=== PATIENT | male | born 1940 | race Caucasian/White ===

== ENCOUNTER 2017-07-29 16:18 | Emergency (ER) | payer MEDICARE, MEDICAID ==
[2017-07-29] MEDS ORDERED: Sodium Chloride 0.9% 1,000 ML IV SCH (16:45)
[2017-07-29] MEDS ORDERED: Albuterol/Ipratropium 3.0-0.5 MG/3 ML Neb Soln NEB ONE (16:57)
--- NOTE | 2017-07-29 17:05 | EDM.PDOC ---
ED HPI GENERAL MEDICAL PROBLEM - General Chief Complaint: Fever Stated Complaint: fever Time Seen by Provider: 07/29/17 16:57 Source of Information: Reports: Patient, [place] Records History Limitations: Reports: No Limitations - History of Present Illness INITIAL COMMENTS - FREE TEXT/NARRATIVE: PT SENT FROM [facility] AFTER CONTACTING DR WALKER FOR URI / FEVER / LOW O2 SAT / PRODUCTIVE COUGH . SYMPTOMS BEGAN YESTERDAY. PT DENIES CP, N/V/D Onset: Gradual Onset Date: 07/28/17 Duration: Day(s): Severity: Mild Improves with: Reports: None Worsens with: Reports: None Associated Symptoms: Reports: Cough, cough w sputum, Fever/Chills, Weakness - Related Data Allergies Allergy/AdvReac Type Severity Reaction Status Date / Time Sulfa (Sulfonamide Allergy Rash Verified 07/29/17 17:05 Antibiotics) Home Meds: Home Meds Fluticasone/Salmeterol [Advair 500-50] 1 puff INH BID 11/12/13 [History] Acetaminophen [Tylenol Extra Strength] 500 mg PO BID 07/29/17 [History] Escitalopram [Lexapro] 20 mg PO DAILY 07/29/17 [History] Melatonin 3 mg PO BEDTIME PRN 07/29/17 [History] Tiotropium [Spiriva Handihaler] 18 mcg INH BID 07/29/17 [History] Past Medical History - Past Surgical History Other HEENT Surgeries/Procedures: plastic lenses put in Social & Family History - Tobacco Use Smoking Status *Q: Current Every Day Smoker Years of Tobacco use: 60 Packs/Tins Daily: 0.8 Used Tobacco, but Quit: No Second Hand Smoke Exposure: Yes - Alcohol Use Days Per Week of Alcohol Use: 2 Number of Drinks Per Day: 1 Total Drinks Per Week: 2 - Recreational Drug Use Recreational Drug Use: No ED ROS GENERAL - Review of Systems Review Of Systems: ROS reveals no pertinent complaints other than HPI. Constitutional: Reports: Fever, Weakness HEENT: Reports: No Symptoms Respiratory: Reports: Wheezing, Cough, Sputum Cardiovascular: Reports: No Symptoms Endocrine: Reports: No Symptoms GI/Abdominal: Reports: No Symptoms : Reports: No Symptoms Musculoskeletal: Reports: No Symptoms Skin: Reports: No Symptoms Neurological: Reports: No Symptoms Psychiatric: Reports: No Symptoms Hematologic/Lymphatic: Reports: No Symptoms Immunologic: Reports: No Symptoms ED EXAM, GENERAL - Physical Exam Exam: See Below Exam Limited By: No Limitations General Appearance: Alert, WD/WN, No Apparent Distress Eye Exam: Bilateral Eye: Normal Inspection Nose: Normal Inspection, Normal Mucosa, No Blood Throat/Mouth: Normal Inspection, Normal Oropharynx, No Airway Compromise Head: Atraumatic, Normocephalic Neck: Normal Inspection Respiratory/Chest: No Respiratory Distress, Rhonchi, Wheezing Cardiovascular: Regular Rate, Rhythm, No Murmur GI/Abdominal: Normal Bowel Sounds, Soft, Non-Tender Extremities: Normal Inspection, No Pedal Edema Neurological: Alert, Oriented, Normal Cognition Psychiatric: Normal Affect, Normal Mood Skin Exam: Warm, Dry, Intact, Normal Color, No Rash Lymphatic: No Adenopathy Course - Orders/Labs/Meds Orders: Active Orders 24 hr Category Date Time Status RT Aerosol Therapy [RC] ASDIRECTED Care 07/29/17 16:58 Ordered CXR [Chest 2V] [CR] Stat Exams 07/29/17 16:33 Ordered CBC WITH AUTO DIFF [HEME] Stat Lab 07/29/17 16:33 Ordered CMP [COMPREHENSIVE METABOLIC PN,CMP] [CHEM] Stat Lab 07/29/17 16:33 Ordered CULTURE BLOOD [BC] Stat Lab 07/29/17 16:34 Ordered CULTURE BLOOD [BC] Stat Lab 07/29/17 16:56 Ordered Albuterol/Ipratropium [DuoNeb 3.0-0.5 MG/3 ML] Med 07/29/17 16:57 Once 3 ml NEB ONETIME ONE Sodium Chloride 0.9% [Normal Saline] 1,000 ml Med 07/29/17 16:45 Active IV ASDIRECTED Medication Orders Sodium Chloride (Normal Saline) 1,000 mls @ 125 mls/hr IV ASDIRECTED [facility] Meds: Medications Generic Name Dose Route Start Last Admin Trade Name Freq PRN Reason Stop Dose Admin Sodium Chloride 1,000 mls @ 125 mls/hr 07/29/17 16:45 Normal Saline IV ASDIRECTED [facility] - Radiology Interpretation Free Text/Narrative:: CXR SHOWS RLL PNEUMONIA - Re-Assessments/Exams Free Text/Narrative Re-Assessment/Exam: 07/29/17 17:23 PT AFEBRILE, NONTOXIC APPEARING, VSS, ROCEPHIN AND LEVAQUIN GIVEN. PT REFUSES TO STAY IN HOSPITAL. DISCUSSED WITH DR WALKER AND WILL SEND BACK TO [place] AND CONTINUE WITH LEVAQUIN 07/29/17 17:27 Departure - Departure Time of Disposition: 17:29 Disposition: DC/Tfer to [facility] Condition: Fair Clinical Impression: Pneumonia Qualifiers: Pneumonia type: due to unspecified organism Laterality: right Lung location: lower lobe of lung Qualified Code(s): J18.1 - Lobar pneumonia, unspecified organism - Discharge Information Instructions: Community-Acquired Pneumonia, Adult, [id number] Additional Instructions: TAKE LEVAQUIN DIRECTED. FOLLOW UP AT [facility] IN 3 DAYS. RETURN TO ER SOONER IF SYMPTOMS WORSEN - My Orders Last 24 Hours: My Active Orders 07/29/17 16:33 CXR [Chest 2V] [CR] Stat CBC WITH AUTO DIFF [HEME] Stat CMP [COMPREHENSIVE METABOLIC PN,CMP] [CHEM] Stat 07/29/17 16:34 CULTURE BLOOD [BC] Stat 07/29/17 16:45 Sodium Chloride 0.9% [Normal Saline] 1,000 ml IV ASDIRECTED 07/29/17 16:56 CULTURE BLOOD [BC] Stat 07/29/17 16:57 Albuterol/Ipratropium [DuoNeb 3.0-0.5 MG/3 ML] 3 ml NEB ONETIME ONE 07/29/17 16:58 RT Aerosol Therapy [RC] ASDIRECTED - Assessment/Plan Last 24 Hours: My Active Orders 07/29/17 16:33 CXR [Chest 2V] [CR] Stat CBC WITH AUTO DIFF [HEME] Stat CMP [COMPREHENSIVE METABOLIC PN,CMP] [CHEM] Stat 07/29/17 16:34 CULTURE BLOOD [BC] Stat 07/29/17 16:45 Sodium Chloride 0.9% [Normal Saline] 1,000 ml IV ASDIRECTED 07/29/17 16:56 CULTURE BLOOD [BC] Stat 07/29/17 16:57 Albuterol/Ipratropium [DuoNeb 3.0-0.5 MG/3 ML] 3 ml NEB ONETIME ONE 07/29/17 16:58 RT Aerosol Therapy [RC] ASDIRECTED Assessment:: PNEUMONIA Plan: RETURN TO [place] AND F/U AT CLINIC
[2017-07-29] MEDS ORDERED: cefTRIAXone 1 GM Vial IVPUSH ONE (17:19)
[2017-07-29] MEDS ORDERED: Levofloxacin/Dextrose 5%-Water 500 MG in Premix Bag 1 BAG IV ONE (17:20)
[2017-07-29] MEDS ORDERED: Levofloxacin 500 MG Tab PO ONE (17:21)
[2017-07-29 18:29] VITALS: BP 113/53
== END 2017-07-29 18:20 ==
LOC: KA.ED 16:18
DX: J18.9 Pneumonia, unspecified organism (principal); F17.210 Nicotine dependence, cigarettes, uncomplicated; Z79.899 Other long term (current) drug therapy; Z88.2 Allergy status to sulfonamides
CPT/HCPCS: 71020; 80053; 85025; 87040; 94640; 96361; 96374; 99285; A9270; J0696; J7030; 99284

== ENCOUNTER 2017-10-20 12:10 | Inpatient (IN) | payer MEDICARE, MEDICAID ==
[2017-10-20] MEDS ORDERED: Albuterol/Ipratropium 3.0-0.5 MG/3 ML Neb Soln NEB ONE (12:17)
[2017-10-20] MEDS ORDERED: Sodium Chloride 0.9% 5 ML Syringe FLUSH PRN ×2 (12:17→13:43)
--- NOTE | 2017-10-20 12:30 | EDM.PDOC ---
ED HPI GENERAL MEDICAL PROBLEM - General Chief Complaint: Respiratory Problem Stated Complaint: Shortness of breath Time Seen by Provider: 10/20/17 12:15 Source of Information: Reports: Patient History Limitations: Reports: No Limitations - History of Present Illness INITIAL COMMENTS - FREE TEXT/NARRATIVE: 77 YO WM presents to ER complaining of productive cough and shortness of breath X 3 days. Pt with PMH of COPD and pneumonia. Pt is a 60+ pack year smoker. Pt denies any chest pain, dizziness, nausea/vomiting or hemoptysis. Onset Date: 10/17/17 Duration: Day(s): (3) Severity: Mild Improves with: Reports: Rest Worsens with: Reports: Breathing Associated Symptoms: Reports: Cough, cough w sputum, Fever/Chills, Malaise, Shortness of Breath, Weakness. Denies: Chest Pain, Nausea/Vomiting, Syncope - Related Data Allergies Allergy/AdvReac Type Severity Reaction Status Date / Time Sulfa (Sulfonamide Allergy Rash Verified 07/29/17 17:05 Antibiotics) Home Meds: Home Meds Fluticasone/Salmeterol [Advair 500-50] 1 puff INH BID 11/12/13 [History] Acetaminophen [Tylenol Extra Strength] 500 mg PO BID 07/29/17 [History] Acetaminophen [Tylenol Extra Strength] 500 mg PO Q6H PRN 07/29/17 [History] Albuterol [Ventolin HFA] 2 puff INH Q4H PRN 07/29/17 [History] Bisacodyl [Dulcolax] 10 mg RC DAILY PRN 07/29/17 [History] Docusate Sodium [Colace] 100 mg PO DAILY PRN 07/29/17 [History] Escitalopram [Lexapro] 20 mg PO DAILY 07/29/17 [History] Hydrocodone/Acetaminophen [Hydrocodon-Acetaminophen 5-325] 1 tab PO Q6H PRN [History] Melatonin 3 mg PO BEDTIME PRN 07/29/17 [History] Polyethylene Glycol 3350 [MiraLAX] 17 gm PO DAILY PRN 07/29/17 [History] Simethicone [Gas-X] 125 mg PO QID PRN 07/29/17 [History] Tiotropium [Spiriva Handihaler] 18 mcg INH BID 07/29/17 [History] Past Medical History Respiratory History: Reports: COPD Genitourinary History: Reports: Other (See Below) Other Genitourinary History: prostate ca Neurological History: Reports: None Psychiatric History: Reports: Anxiety, Depression Endocrine/Metabolic History: Reports: None Oncologic (Cancer) History: Reports: Prostate - Past Surgical History Other HEENT Surgeries/Procedures: plastic lenses put in Male Surgical History: Reports: Prostatectomy Musculoskeletal Surgical History: Reports: Hip Replacement Social & Family History - Family History Family Medical History: Noncontributory - Tobacco Use Smoking Status *Q: Former Smoker Years of Tobacco use: 60 Packs/Tins Daily: 0.8 Used Tobacco, but Quit: Yes Month Tobacco Last Used: april Second Hand Smoke Exposure: No - Caffeine Use Caffeine Use: Reports: Coffee - Alcohol Use Days Per Week of Alcohol Use: 2 Number of Drinks Per Day: 1 Total Drinks Per Week: 2 - Recreational Drug Use Recreational Drug Use: No ED ROS GENERAL - Review of Systems Review Of Systems: See Below Constitutional: Reports: Fever, Chills, Malaise HEENT: Reports: No Symptoms Respiratory: Reports: Shortness of Breath, Wheezing, Cough, Sputum. Denies: Pleuritic Chest Pain, Hemoptysis Cardiovascular: Reports: No Symptoms. Denies: Chest Pain, Lightheadedness Endocrine: Reports: No Symptoms GI/Abdominal: Reports: No Symptoms : Reports: No Symptoms Musculoskeletal: Reports: No Symptoms Skin: Reports: No Symptoms Neurological: Reports: No Symptoms Psychiatric: Reports: No Symptoms Hematologic/Lymphatic: Reports: No Symptoms Immunologic: Reports: No Symptoms ED EXAM, GENERAL - Physical Exam Exam: See Below Exam Limited By: No Limitations General Appearance: Alert, WD/WN, No Apparent Distress Head: Atraumatic, Normocephalic Neck: Normal Inspection, Supple, Non-Tender, Full Range of Motion Respiratory/Chest: No Respiratory Distress, No Accessory Muscle Use, Chest Non- Tender, Rhonchi, Wheezing. No: Lungs Clear, Normal Breath Sounds, Respiratory Distress Cardiovascular: Normal Peripheral Pulses, Regular Rate, Rhythm, No Edema, No Gallop, No JVD, No Murmur, No Rub GI/Abdominal: Normal Bowel Sounds, Soft, Non-Tender, No Organomegaly, No Distention, No Abnormal Bruit, No Mass Back Exam: Normal Inspection, Full Range of Motion, NT Extremities: Normal Inspection, Normal Range of Motion, Non-Tender, Normal Capillary Refill, No Pedal Edema Neurological: Alert, Oriented, CN II-XII Intact, Normal Cognition, Normal Gait, Normal Reflexes, No Motor/Sensory Deficits Psychiatric: Normal Affect, Normal Mood Skin Exam: Warm, Dry, Intact, Normal Color, No Rash Lymphatic: No Adenopathy Course - Vital Signs Last Recorded V/S: Last Vital Signs Temp 36.8 C 10/20/17 12:39 Pulse 101 H 10/20/17 12:39 Resp 28 H 10/20/17 12:39 BP 85/54 L 10/20/17 12:39 Pulse Ox 94 L 10/20/17 12:39 - Orders/Labs/Meds Orders: Active Orders 24 hr Category Date Time Status EKG Documentation Completion [RC] ASDIRECTED Care 10/20/17 12:18 Active Peripheral IV Care [RC] . DIRECTED Care 10/20/17 12:18 Active RT Aerosol Therapy [RC] ASDIRECTED Care 10/20/17 12:18 Active Chest 1V Frontal [CR] Stat Exams 10/20/17 12:17 Taken CULTURE BLOOD [BC] Stat Lab 10/20/17 12:25 Received CULTURE BLOOD [BC] Stat Lab 10/20/17 12:35 Received Sodium Chloride 0.9% [Normal Saline] 1,000 ml Med 10/20/17 13:12 Active IV .BOLUS Sodium Chloride 0.9% [Syrex Flush] Med 10/20/17 12:17 Active 5 ml FLUSH Q8HR PRN Blood Culture x2 Reflex Set [OM.PC] Stat Oth 10/20/17 12:17 Ordered Peripheral IV Insertion Adult [OM.PC] Routine Oth 10/20/17 12:17 Ordered Medication Orders Sodium Chloride (Normal Saline) 1,000 mls @ 999 mls/hr IV .BOLUS ONE Stop: 10/20/17 14:12 Last Admin: 10/20/17 13:22 Dose: 999 mls/hr Sodium Chloride (Syrex Flush) 5 ml FLUSH Q8HR PRN PRN Reason: Keep Vein Open Last Admin: 10/20/17 12:38 Dose: 5 ml Labs: Laboratory Tests 10/20/17 10/20/17 10/20/17 Range/Units 12:25 12:25 12:25 WBC 20.1 H (5.0-10.0) 10^3/uL RBC 4.01 L (4.50-6.00) 10^6/uL Hgb 11.8 L (13.0-17.0) g/dL Hct 35.6 L (40.0-52.0) % MCV 88.8 (82.0-92.0) fL MCH 29.4 (27.0-31.0) pg MCHC 33.2 (32.0-36.0) g/dL RDW 14.4 (11.5-14.5) % Plt Count 355 H (150-300) 10^3/uL MPV 7.4 (7.4-10.4) fL Neut % (Auto) 82.3 H (50.0-70.0) % Lymph % (Auto) 10.3 L (20.0-40.0) % Darke % (Auto) 7.1 (2.0-8.0) % Eos % (Auto) 0.3 L (1.0-3.0) % Baso % (Auto) 0.0 (0.0-1.0) % Neut # (Auto) 16.5 H (2.5-7.0) 10^3/uL Lymph # (Auto) 2.1 (1.0-4.0) 10^3/uL Darke # (Auto) 1.4 H (0.1-0.8) 10^3/uL Eos # (Auto) 0.1 (0.1-0.3) 10^3/uL Baso # (Auto) 0.0 (0.0-0.1) 10^3/uL Sodium 139 (136-145) mmol/L Potassium 4.5 (3.3-5.3) mmol/L Chloride 101 (98-115) mmol/L Carbon Dioxide 25.0 (21.0-32.0) mmol/L BUN 29 H (6-25) mg/dL Creatinine 1.47 H (0.51-1.17) mg/dL Est Cr Clr Drug Dosing 39.86 mL/min Estimated GFR (MDRD) 46 mL/min Glucose 111 H (70-110) mg/dL Lactic Acid 1.2 (0.4-2.0) mmol/L Calcium 9.0 (8.7-10.3) mg/dL Total Bilirubin 0.4 (0.2-1.0) mg/dL AST 20 (15-37) U/L ALT 15 (12-78) U/L Alkaline Phosphatase 105 (46-116) IU/L Creatine Kinase 120 (26-276) U/L CK-MB (CK-2) 0.50 (0.00-4.30) ng/mL Troponin I 0.05 (0.00-0.070) ng/mL Total Protein 8.2 (6.4-8.2) g/dL Albumin 3.24 (3.00-4.80) g/dL Meds: Medications Generic Name Dose Route Start Last Admin Trade Name Freq PRN Reason Stop Dose Admin Sodium Chloride 1,000 mls @ 999 mls/hr 10/20/17 13:12 10/20/17 13:22 Normal Saline IV 10/20/17 14:12 999 mls/hr .BOLUS ONE Administration Sodium Chloride 5 ml 10/20/17 12:17 10/20/17 12:38 Syrex Flush FLUSH 5 ml Q8HR PRN Administration Keep Vein Open Discontinued Medications Generic Name Dose Route Start Last Admin Trade Name Freq PRN Reason Stop Dose Admin Albuterol/Ipratropium 3 ml 10/20/17 12:17 10/20/17 12:30 Duoneb 3.0-0.5 Mg/3 Ml NEB 10/20/17 12:18 3 ml ONETIME ONE Administration - Radiology Interpretation Free Text/Narrative:: CXR- questionable RLL infiltrate vs COPD Departure - Departure Time of Disposition: 13:41 Disposition: Admitted As Inpatient 65 Condition: Fair Clinical Impression: COPD (chronic obstructive pulmonary disease) Qualifiers: COPD type: unspecified COPD Qualified Code(s): J44.9 - Chronic obstructive pulmonary disease, unspecified Pneumonia Qualifiers: Pneumonia type: due to unspecified organism Laterality: right Lung location: lower lobe of lung Qualified Code(s): J18.1 - Lobar pneumonia, unspecified organism - Discharge Information Referrals: Auar Fritz MD [Primary Care Provider] - Forms: ED Department Discharge - My Orders Last 24 Hours: My Active Orders 10/20/17 12:17 Chest 1V Frontal [CR] Stat Sodium Chloride 0.9% [Syrex Flush] 5 ml FLUSH Q8HR PRN Blood Culture x2 Reflex Set [OM.PC] Stat Peripheral IV Insertion Adult [OM.PC] Routine 10/20/17 12:18 EKG Documentation Completion [RC] ASDIRECTED Peripheral IV Care [RC] . DIRECTED RT Aerosol Therapy [RC] ASDIRECTED 10/20/17 12:25 CULTURE BLOOD [BC] Stat 10/20/17 12:35 CULTURE BLOOD [BC] Stat 10/20/17 13:12 Sodium Chloride 0.9% [Normal Saline] 1,000 ml IV .BOLUS - Assessment/Plan Last 24 Hours: My Active Orders 10/20/17 12:17 Chest 1V Frontal [CR] Stat Sodium Chloride 0.9% [Syrex Flush] 5 ml FLUSH Q8HR PRN Blood Culture x2 Reflex Set [OM.PC] Stat Peripheral IV Insertion Adult [OM.PC] Routine 10/20/17 12:18 EKG Documentation Completion [RC] ASDIRECTED Peripheral IV Care [RC] . DIRECTED RT Aerosol Therapy [RC] ASDIRECTED 10/20/17 12:25 CULTURE BLOOD [BC] Stat 10/20/17 12:35 CULTURE BLOOD [BC] Stat 10/20/17 13:12 Sodium Chloride 0.9% [Normal Saline] 1,000 ml IV .BOLUS Assessment:: 1. COPD vs RLL pneumonia Plan: 1. Admit to [facility] 2. levaquin 500mg IV QD 3. duoneb [place] Q4 and PRN 4. supplemental oxygen 5. solumedrol 80mg IV Q8
[2017-10-20] MEDS ORDERED: Sodium Chloride 0.9% 1,000 ML IV ONE (13:12)
[2017-10-20] MEDS ORDERED: Sodium Chloride 0.9% 1,000 ML IV SCH (13:45)
[2017-10-20] MEDS ORDERED: Levofloxacin/Dextrose 5%-Water 500 MG in Premix Bag 1 BAG IV SCH (14:00)
[2017-10-20] MEDS ORDERED: cefTRIAXone 1 GM in Sodium Chloride 0.9% 50 ML IV SCH (16:00)
[2017-10-20] MEDS: Nicotine 21 MG/24 Hr Patch TRDERM SCH (16:24)
[2017-10-20] MEDS: methylPREDNISolone Sodium Succinate 125 MG/2 ML SDV IVPUSH SCH ×2 (16:25→22:11)
[2017-10-20] MEDS: Azithromycin 500 MG in Sodium Chloride 0.9% 250 ML IV SCH (17:04)
[2017-10-20] MEDS: Acetaminophen 325 MG Tab PO PRN (17:31)
[2017-10-20] MEDS: Albuterol/Ipratropium 3.0-0.5 MG/3 ML Neb Soln NEB PRN (19:14)
[2017-10-21] MEDS: methylPREDNISolone Sodium Succinate 125 MG/2 ML SDV IVPUSH SCH (06:09)
[2017-10-21] MEDS: Albuterol/Ipratropium 3.0-0.5 MG/3 ML Neb Soln NEB PRN (06:20)
[2017-10-21] MEDS: Acetaminophen 325 MG Tab PO PRN ×2 (07:37→16:54)
[2017-10-21] MEDS: Nicotine 21 MG/24 Hr Patch TRDERM SCH (08:02)
--- NOTE | 2017-10-21 08:54 | PCM.PN ---
- General Info Date of Service: 10/21/17 Admission Dx/Problem (Free Text): RLL pneumonia - Review of Systems Systems Review Comment:: Triston is seen today on inpatient rounds. He was admitted on 10/20/17 through ER with RLL pneumonia and COPD exacerbation. He was started on levofloxacin but was changed to azithromycin and ceftriaxone. He is on solumedrol 80 mg IV q 8 hours. WBC initially 20 down to 12 today. No fevers. He states he feels better. Appetite has been OK, breathing is easier today. He also has a bit of renal insufficiency which is chronic in nature and not changed. Creatinine 1.47 yesterday down to 1.28 today. No questions or concerns. Nursing notes his Advair and his Spiriva were not continued with his admission yet he does take them at home. - Patient Data Vitals - Most Recent: Last Vital Signs Temp 98.8 F 10/21/17 08:00 Pulse 85 10/21/17 06:00 Resp 18 10/21/17 06:00 BP 102/57 L 10/21/17 06:00 Pulse Ox 93 L 10/21/17 06:18 Weight - Most Recent: 133 lb 1.6 oz I&O - Last 24 Hours: Intake & Output 10/20/17 10/21/17 10/21/17 22:59 06:59 14:59 Intake Total 1200 1297 Output Total 350 300 Balance 850 997 Lab Results Last 24 Hours: Laboratory Results - last 24 hr 10/21/17 10/21/17 Range/Units 07:25 07:25 WBC 12.8 H (5.0-10.0) 10^3/uL RBC 3.73 L (4.50-6.00) 10^6/uL Hgb 10.6 L (13.0-17.0) g/dL Hct 33.2 L (40.0-52.0) % MCV 89.1 (82.0-92.0) fL MCH 28.4 (27.0-31.0) pg MCHC 31.9 L (32.0-36.0) g/dL RDW 14.5 (11.5-14.5) % Plt Count 380 H (150-300) 10^3/uL MPV 7.0 L (7.4-10.4) fL Neut % (Auto) 91.0 H (50.0-70.0) % Lymph % (Auto) 8.0 L (20.0-40.0) % Piatt % (Auto) 0.6 L (2.0-8.0) % Eos % (Auto) 0.1 L (1.0-3.0) % Baso % (Auto) 0.3 (0.0-1.0) % Neut # (Auto) 11.7 H (2.5-7.0) 10^3/uL Lymph # (Auto) 1.0 (1.0-4.0) 10^3/uL Piatt # (Auto) 0.1 (0.1-0.8) 10^3/uL Eos # (Auto) 0.0 L (0.1-0.3) 10^3/uL Baso # (Auto) 0.0 (0.0-0.1) 10^3/uL Sodium 141 (136-145) mmol/L Potassium 4.7 (3.3-5.3) mmol/L Chloride 105 (98-115) mmol/L Carbon Dioxide 24.7 (21.0-32.0) mmol/L BUN 33 H (6-25) mg/dL Creatinine 1.28 H (0.51-1.17) mg/dL Est Cr Clr Drug Dosing 40.62 mL/min Estimated GFR (MDRD) 54 mL/min Glucose 164 H (70-110) mg/dL Calcium 8.6 L (8.7-10.3) mg/dL Richard Results Last 24 Hours: Microbiology 10/20/17 19:15 Gram Stain - Final Sputum - Expectorated Med Orders - Current: Current Medications Acetaminophen (Tylenol) 650 mg PO Q6H PRN PRN Reason: Pain Last Admin: 10/21/17 07:37 Dose: 650 mg Albuterol/Ipratropium (Duoneb 3.0-0.5 Mg/3 Ml) 3 ml NEB Q4H PRN PRN Reason: Shortness Of Breath/wheezing Last Admin: 10/21/17 06:20 Dose: 3 ml Sodium Chloride (Normal Saline) 1,000 mls @ 100 mls/hr IV ASDIRECTED [facility] Last Admin: 10/20/17 16:31 Dose: 100 mls/hr Azithromycin 500 mg/ Sodium (Chloride) 250 mls @ 250 mls/hr IV Q24H [facility] Last Admin: 10/20/17 17:04 Dose: 250 mls/hr Ceftriaxone Sodium 1 gm/ (Sodium Chloride) 50 mls @ 200 mls/hr IV Q24H [facility] Last Admin: 10/20/17 16:33 Dose: 200 mls/hr Methylprednisolone Sodium Succinate (Solu-Medrol) 80 mg IVPUSH Q8H [facility] Last Admin: 10/21/17 06:09 Dose: 80 mg Nicotine (Habitrol) 21 mg TRDERM DAILY [facility] Last Admin: 10/21/17 08:02 Dose: Not Given Sodium Chloride (Syrex Flush) 5 ml FLUSH Q8HR PRN PRN Reason: Keep Vein Open Last Admin: 10/20/17 21:27 Dose: 5 ml Discontinued Medications Albuterol/Ipratropium (Duoneb 3.0-0.5 Mg/3 Ml) 3 ml NEB ONETIME ONE Stop: 10/20/17 12:18 Last Admin: 10/20/17 12:30 Dose: 3 ml Sodium Chloride (Normal Saline) 1,000 mls @ 999 mls/hr IV .BOLUS ONE Stop: 10/20/17 14:12 Last Admin: 10/20/17 13:22 Dose: 999 mls/hr Levofloxacin/Dextrose 500 mg/ (Premix) 100 mls @ 100 mls/hr IV Q24H [facility] Last Admin: 10/20/17 16:30 Dose: Not Given Sodium Chloride (Syrex Flush) 5 ml FLUSH Q8HR PRN PRN Reason: Keep Vein Open Last Admin: 10/20/17 12:38 Dose: 5 ml - Exam General: Alert, Oriented, Cooperative, No Acute Distress Lungs: Decreased Breath Sounds, Rales (Right lower lung base. ), Other ( Transmitted bronchial breath sounds throughout all lung ramirez.) Cardiovascular: Regular Rate, Regular Rhythm, No Murmurs GI/Abdominal Exam: Normal Bowel Sounds - Problem List & Annotations (1) Pneumonia SNOMED Code(s): 778457318 Code(s): J18.9 - PNEUMONIA, UNSPECIFIED ORGANISM Status: Acute Current Visit: Yes Qualifiers: Pneumonia type: due to unspecified organism Laterality: right Lung location: lower lobe of lung Qualified Code(s): J18.1 - Lobar pneumonia, unspecified organism (2) COPD (chronic obstructive pulmonary disease) SNOMED Code(s): 09863053 Code(s): J44.9 - CHRONIC OBSTRUCTIVE PULMONARY DISEASE, UNSPECIFIED Status : Chronic Current Visit: Yes Qualifiers: COPD type: unspecified COPD Qualified Code(s): J44.9 - Chronic obstructive pulmonary disease, unspecified - Problem List Review Problem List Initiated/Reviewed/Updated: Yes - My Orders Last 24 Hours: My Active Orders 10/20/17 16:00 cefTRIAXone [Rocephin] 1 gm Sodium Chloride 0.9% [Normal Saline] 50 ml IV Q24H 10/20/17 17:00 Azithromycin [Zithromax] 500 mg Sodium Chloride 0.9% [Normal Saline] 250 ml IV Q24H 10/20/17 17:10 Acetaminophen [Tylenol] 650 mg PO Q6H PRN 10/21/17 09:00 Acetaminophen [Tylenol Extra Strength] 500 mg PO BID Albuterol/Ipratropium [DuoNeb 3.0-0.5 MG/3 ML] 3 ml NEB QID Fluticasone/Salmeterol [Advair Diskus 500-50] 1 puff INH BID Tiotropium 18 mcg INH DAILY - Assessment Assessment:: RLL Pneumonia COPD exacerbation - Plan Plan:: RLL Pneumonia. Continue azithromycin and ceftriaxone. Sputum culture pending. COPD exacerbation. I am going to discontinue his solumedrol as his respiratory status has improved. Will restart his home Advair and Spiriva. If SOB worsens can start prednisone 60 mg PO daily x 5 days. Anticipate home in 1-2 days.
[2017-10-21] MEDS ORDERED: Albuterol/Ipratropium 3.0-0.5 MG/3 ML Neb Soln NEB SCH (09:00)
[2017-10-21] MEDS: Acetaminophen 500 MG Tab PO SCH ×2 (09:19→21:03)
[2017-10-21] MEDS: Fluticasone/Salmeterol 500-50 MCG Inhalation Powder 14/Diskus INH SCH ×2 (09:30→20:28)
[2017-10-21] MEDS: Tiotropium Inhaler 18 MCG Inhalation Powder Cap Kit of 5 INH SCH (09:34)
[2017-10-21] MEDS: Albuterol/Ipratropium 3.0-0.5 MG/3 ML Neb Soln NEB SCH ×3 (11:25→21:04)
[2017-10-21] MEDS ORDERED: cefTRIAXone 1 GM Vial IVPUSH SCH (16:00)
[2017-10-21] MEDS: Azithromycin 500 MG in Sodium Chloride 0.9% 250 ML IV SCH (16:21)
[2017-10-22] MEDS: Acetaminophen 325 MG Tab PO PRN (01:05)
[2017-10-22] MEDS: Albuterol/Ipratropium 3.0-0.5 MG/3 ML Neb Soln NEB SCH (05:44)
[2017-10-22 06:07] VITALS: BP 104/60
[2017-10-22] MEDS: Fluticasone/Salmeterol 500-50 MCG Inhalation Powder 14/Diskus INH SCH (08:06)
[2017-10-22] MEDS: Tiotropium Inhaler 18 MCG Inhalation Powder Cap Kit of 5 INH SCH (08:07)
[2017-10-22] MEDS: Acetaminophen 500 MG Tab PO SCH (08:08)
[2017-10-22] MEDS: Nicotine 21 MG/24 Hr Patch TRDERM SCH (08:09)
--- NOTE | 2017-10-22 10:06 | PCM.DCSUM1 ---
Discharge Summary - Hospital Course Free Text/Narrative:: 77 YO WM with PMH of pneumonia and COPD who was hospitalized for questionable RLL pneumonia and COPD exacerbation. Pt received rocephin/zithromax for possible pneumonia and duoneb treatments Q4 hours and PRN. Pt also received solumedrol 80mg Q8 which was discontinued yesterday. Pt refused IV fluids during hospitalization. It was discussed at time of discharge that his renal function has worsened and that iv fluids would help to correct. Pt understands but is still refusing IV fluids stating he will increase his fluids orally and follow up in the clinic for recheck of his kidney function later this week. Pt reports he is feeling well and has had no shortness of breath and his cough has improved as well. Pt wants to go home. Pt has albuterol nebs at home and will use Q4 hours. Pt will be discharged on doxycycline 100mg PO BID x 10days and follow up in the clinic next week for recheck. - Discharge Data Discharge Date: 10/22/17 Discharge Disposition: Home, Self-Care 01 Condition: Good - Patient Instructions Diet: Usual Diet as Tolerated Activity: As Tolerated Showering/Bathing: May Shower Notify Provider of: Fever - Discharge Plan Home Medications: Home Meds Fluticasone/Salmeterol [Advair 500-50] 1 puff INH BID 11/12/13 [History] Acetaminophen [Tylenol Extra Strength] 500 mg PO BID 07/29/17 [History] Tiotropium [Spiriva Handihaler] 18 mcg INH DAILY 07/29/17 [History] Albuterol/Ipratropium [DuoNeb 3.0-0.5 MG/3 ML] 3 ml NEB QID 10/20/17 [History] Forms: ED Department Discharge Referrals: Aura Fritz MD [Primary Care Provider] - - Discharge Summary/Plan Comment DC Time >30 min.: No Discharge Summary/Plan Comment: 1. doxycycline 100mg PO BID x 10 days 2. duonebs Q4 hours and PRN 3. increaase oral fluids 4. follow up in clinic next 5-7 days for recheck of kidney function and respiratory function 5. return to ER for worsening symptoms - General Info Date of Service: 10/22/17 Admission Dx/Problem (Free Text: RLL pneumonia Functional Status: Reports: Pain Controlled - Review of Systems General: Reports: No Symptoms HEENT: Reports: No Symptoms Pulmonary: Reports: No Symptoms Cardiovascular: Reports: No Symptoms Gastrointestinal: Reports: No Symptoms Genitourinary: Reports: No Symptoms Musculoskeletal: Reports: No Symptoms Skin: Reports: No Symptoms Neurological: Reports: No Symptoms Psychiatric: Reports: No Symptoms - Patient Data Vitals - Most Recent: Last Vital Signs Temp 36.9 C 10/22/17 06:07 Pulse 76 10/22/17 06:07 Resp 18 10/22/17 06:07 BP 104/60 10/22/17 06:07 Pulse Ox 95 10/22/17 06:07 Weight - Most Recent: 60.373 kg I&O - Last 24 hours: Intake & Output 10/21/17 10/22/17 10/22/17 22:59 06:59 14:59 Intake Total 570 300 Output Total 500 Balance 570 -200 Lab Results - Last 24 hrs: Laboratory Results - last 24 hr 10/22/17 10/22/17 Range/Units 07:20 07:20 WBC 16.6 H (5.0-10.0) 10^3/uL RBC 3.44 L (4.50-6.00) 10^6/uL Hgb 9.8 L (13.0-17.0) g/dL Hct 31.1 L (40.0-52.0) % MCV 90.4 (82.0-92.0) fL MCH 28.4 (27.0-31.0) pg MCHC 31.4 L (32.0-36.0) g/dL RDW 14.8 H (11.5-14.5) % Plt Count 395 H (150-300) 10^3/uL MPV 6.9 L (7.4-10.4) fL Neut % (Auto) 88.4 H (50.0-70.0) % Lymph % (Auto) 6.3 L (20.0-40.0) % [place] % (Auto) 4.9 (2.0-8.0) % Eos % (Auto) 0.3 L (1.0-3.0) % Baso % (Auto) 0.1 (0.0-1.0) % Neut # (Auto) 14.8 H (2.5-7.0) 10^3/uL Lymph # (Auto) 1.0 (1.0-4.0) 10^3/uL [place] # (Auto) 0.8 (0.1-0.8) 10^3/uL Eos # (Auto) 0.0 L (0.1-0.3) 10^3/uL Baso # (Auto) 0.0 (0.0-0.1) 10^3/uL Sodium 139 (136-145) mmol/L Potassium 4.6 (3.3-5.3) mmol/L Chloride 103 (98-115) mmol/L Carbon Dioxide 24.1 (21.0-32.0) mmol/L BUN 46 H (6-25) mg/dL Creatinine 1.48 H (0.51-1.17) mg/dL Est Cr Clr Drug Dosing 35.13 mL/min Estimated GFR (MDRD) 46 mL/min Glucose 144 H (70-110) mg/dL Calcium 8.8 (8.7-10.3) mg/dL JOSE Results - Last 24 hrs: Microbiology 10/20/17 19:15 Gram Stain - Final Sputum - Expectorated Sputum Culture - Final ORAL CONTAMINATION 2 DAY Med Orders - Current: Current Medications Acetaminophen (Tylenol) 650 mg PO Q6H PRN PRN Reason: Pain Last Admin: 10/22/17 01:05 Dose: 650 mg Acetaminophen (Tylenol Extra Strength) 500 mg PO BID [facility] Last Admin: 10/22/17 08:08 Dose: 500 mg Albuterol/Ipratropium (Duoneb 3.0-0.5 Mg/3 Ml) 3 ml NEB Q4H PRN PRN Reason: Shortness Of Breath/wheezing Last Admin: 10/21/17 06:20 Dose: 3 ml Albuterol/Ipratropium (Duoneb 3.0-0.5 Mg/3 Ml) 3 ml NEB QIDRT [facility] Last Admin: 10/22/17 05:44 Dose: 3 ml Ceftriaxone Sodium (Rocephin) 1 gm IVPUSH Q24H [facility] Last Admin: 10/21/17 16:11 Dose: 1 gm Azithromycin 500 mg/ Sodium (Chloride) 250 mls @ 250 mls/hr IV Q24H [facility] Last Admin: 12/22/17 16:21 Dose: 250 mls/hr Nicotine (Habitrol) 21 mg TRDERM DAILY [facility] Last Admin: 10/22/17 08:09 Dose: Not Given Fluticasone/Salmeterol (Advair Diskus 500-50) 1 puff INH BID [facility] Last Admin: 10/22/17 08:06 Dose: 1 puff Sodium Chloride (Syrex Flush) 5 ml FLUSH Q8HR PRN PRN Reason: Keep Vein Open Last Admin: 10/20/17 21:27 Dose: 5 ml Tiotropium [place] (Spiriva Handihaler) 18 mcg INH DAILY [facility] Last Admin: 10/22/17 08:07 Dose: 18 mcg Discontinued Medications Albuterol/Ipratropium (Duoneb 3.0-0.5 Mg/3 Ml) 3 ml NEB ONETIME ONE Stop: 10/20/17 12:18 Last Admin: 10/20/17 12:30 Dose: 3 ml Albuterol/Ipratropium (Duoneb 3.0-0.5 Mg/3 Ml) 3 ml NEB QID [facility] Last Admin: 10/21/17 10:27 Dose: Not Given Sodium Chloride (Normal Saline) 1,000 mls @ 999 mls/hr IV .BOLUS ONE Stop: 10/20/17 14:12 Last Admin: 10/20/17 13:22 Dose: 999 mls/hr Levofloxacin/Dextrose 500 mg/ (Premix) 100 mls @ 100 mls/hr IV Q24H [facility] Last Admin: 10/20/17 16:30 Dose: Not Given Sodium Chloride (Normal Saline) 1,000 mls @ 100 mls/hr IV ASDIRECTED [facility] Last Admin: 10/20/17 16:31 Dose: 100 mls/hr Ceftriaxone Sodium 1 gm/ (Sodium Chloride) 50 mls @ 200 mls/hr IV Q24H [facility] Last Admin: 10/20/17 16:33 Dose: 200 mls/hr Methylprednisolone Sodium Succinate (Solu-Medrol) 80 mg IVPUSH Q8H [facility] Last Admin: 10/21/17 06:09 Dose: 80 mg Sodium Chloride (Syrex Flush) 5 ml FLUSH Q8HR PRN PRN Reason: Keep Vein Open Last Admin: 10/20/17 12:38 Dose: 5 ml - Exam General: Reports: Alert, Oriented HEENT: Reports: Pupils Equal, Pupils Reactive, EOMI, Mucous Membr. Moist/[place] Neck: Reports: Supple Lungs: Reports: Clear to Auscultation, Normal Respiratory Effort Cardiovascular: Reports: Regular Rate, Regular Rhythm GI/Abdominal Exam: Normal Bowel Sounds, Soft, Non-Tender, No Organomegaly, No Distention, No Abnormal Bruit, No Mass, Pelvis Stable Back Exam: Reports: Normal Inspection, Full Range of Motion Extremities: Normal Inspection, Normal Range of Motion, Non-Tender, No Pedal Edema, Normal Capillary Refill Skin: Reports: Warm, Dry, Intact Wound/Incisions: Reports: Healing Well Neurological: Reports: No New Focal Deficit Psy/Mental Status: Reports: Alert, Normal Affect, Normal Mood *Q Meaningful Use (DIS) - VTE *Q VTE Criteria *Q: - Stroke *Q Stroke Criteria *Q: - AMI *Q AMI Criteria *Q:
== END 2017-10-22 10:15 | disposition home or self-care (01) | DRG 195 ==
LOC: KA.ED 12:10 → KA.MS 13:38
PROVIDERS: ADMIT Physician Assistant Medical; ATTEND Internal Medicine
DX: J18.1 Lobar pneumonia, unspecified organism (principal); J44.9 Chronic obstructive pulmonary disease, unspecified; Z88.2 Allergy status to sulfonamides; Z79.899 Other long term (current) drug therapy; Z87.891 Personal history of nicotine dependence; F41.8 Other specified anxiety disorders; Z85.46 Personal history of malignant neoplasm of prostate
CPT/HCPCS: 36415; 71010; 80053; 82550; 82553; 83605; 84484; 85025; 87040 ×2; 94640; 99285; J7030; 80048; 87070; 87205; A9270-GY; J0456; J0696; J2930; J7050

== ENCOUNTER 2017-12-28 19:50 | Emergency (ER) | payer MEDICARE, MEDICAID ==
[2017-12-28] MEDS: methylPREDNISolone Sodium Succinate 125 MG/2 ML SDV IVPUSH ONE (20:10)
[2017-12-28] MEDS: Albuterol/Ipratropium 3.0-0.5 MG/3 ML Neb Soln NEB ONE (20:10)
--- NOTE | 2017-12-28 20:11 | EDM.PDOC ---
ED HPI GENERAL MEDICAL PROBLEM - General Chief Complaint: Respiratory Problem Stated Complaint: SHORTNESS OF BREATH Time Seen by Provider: 12/28/17 19:50 History Limitations: Reports: No Limitations - History of Present Illness INITIAL COMMENTS - FREE TEXT/NARRATIVE: Patient presents with dyspnea yesterday and today. He has COPD but the chronic dyspnea has been worse now. He uses DuoNebs at home qid but says they aren't working because the hose collapses and isn't working. He doesn't know how to get it replaced as he has checked at the pharmacy. He says he thinks he will have to get one from [facility] [place]. He just this morning, finished courses of prednisone and an antibiotic (not sure what one). He doesn't think he has had a fever. - Related Data Allergies Allergy/AdvReac Type Severity Reaction Status Date / Time Sulfa (Sulfonamide Allergy Rash Verified 12/28/17 20:26 Antibiotics) Home Meds: Home Meds Fluticasone/Salmeterol [Advair 500-50] 1 puff INH BID 11/12/13 [History] Acetaminophen [Tylenol Extra Strength] 500 mg PO BID 07/29/17 [History] Tiotropium [Spiriva Handihaler] 18 mcg INH DAILY 07/29/17 [History] Albuterol/Ipratropium [DuoNeb 3.0-0.5 MG/3 ML] 3 ml NEB QID 10/20/17 [History] Past Medical History HEENT History: Reports: Hard of Hearing Respiratory History: Reports: COPD Other Respiratory History: every day smoker Gastrointestinal History: Reports: None Genitourinary History: Reports: Prostate Disorder, Other (See Below) Other Genitourinary History: prostate ca Musculoskeletal History: Reports: Fracture Neurological History: Reports: None Psychiatric History: Reports: Anxiety, Depression Endocrine/Metabolic History: Reports: None Hematologic History: Reports: None Oncologic (Cancer) History: Reports: Prostate - Infectious Disease History Infectious Disease History: Reports: None - Past Surgical History HEENT Surgical History: Reports: Eye Surgery Other HEENT Surgeries/Procedures: plastic lenses put in Respiratory Surgical History: Reports: None GI Surgical History: Reports: Colonoscopy Male Surgical History: Reports: Prostatectomy Musculoskeletal Surgical History: Reports: Hip Replacement Oncologic Surgical History: Reports: None Social & Family History - Family History Family Medical History: Noncontributory - Tobacco Use Smoking Status *Q: Current Every Day Smoker Years of Tobacco use: 60 Packs/Tins Daily: 0.5 Used Tobacco, but Quit: Yes Month Tobacco Last Used: april Second Hand Smoke Exposure: No - Caffeine Use Caffeine Use: Reports: Coffee - Alcohol Use Days Per Week of Alcohol Use: 2 Number of Drinks Per Day: 1 Total Drinks Per Week: 2 - Recreational Drug Use Recreational Drug Use: No ED ROS GENERAL - Review of Systems Review Of Systems: See Below Constitutional: Denies: Fever, Weakness, Diaphoresis HEENT: Denies: Throat Pain Respiratory: Reports: Shortness of Breath. Denies: Cough (no worse than his usual cough) Cardiovascular: Denies: Chest Pain, Syncope GI/Abdominal: Denies: Abdominal Pain, Vomiting : Reports: No Symptoms Musculoskeletal: Reports: No Symptoms Skin: Denies: Cyanosis, Jaundice, Mottled, Pallor, Diaphoresis Neurological: Denies: Confusion, Dizziness, Seizure, Syncope, Trouble Speaking Psychiatric: Denies: Agitation, Anxiety, Confusion ED EXAM, GENERAL - Physical Exam Exam: See Below Exam Limited By: No Limitations General Appearance: Alert, WD/WN, No Apparent Distress Eye Exam: Bilateral Eye: EOMI, Normal Inspection, PERRL Ears: Normal External Exam, Hearing Grossly Normal Nose: Normal Inspection, No Blood Throat/Mouth: Normal Inspection, Normal Lips, Normal Voice, No Airway Compromise Head: Atraumatic, Normocephalic Neck: Normal Inspection, Full Range of Motion Respiratory/Chest: Crackles (mostly on expiration), Rales, Wheezing, Accessory Muscle Use (mild), Prolonged Expiration. No: Stridor Cardiovascular: Regular Rate, Rhythm, No Gallop, No JVD, No Murmur GI/Abdominal: Normal Bowel Sounds, Soft, Non-Tender, No Organomegaly, No Distention. No: Guarding, Rigid, Rebound, Tender, Abnormal Bowel Sounds Back Exam: No: CVA Tenderness (L), CVA Tenderness (R) Extremities: Normal Inspection, Normal Range of Motion Neurological: Alert, Oriented, Normal Cognition, No Motor/Sensory Deficits Psychiatric: Normal Affect, Normal Mood Skin Exam: Warm, Dry, Intact, Normal Color, No Rash Course - Vital Signs Last Recorded V/S: Last Vital Signs Temp 98.6 F 12/28/17 20:45 Pulse 103 H 12/28/17 20:45 Resp 24 H 12/28/17 20:45 BP 128/76 12/28/17 20:45 Pulse Ox 93 L 12/28/17 20:45 - Orders/Labs/Meds Orders: Active Orders 24 hr Category Date Time Status RT Aerosol Therapy [RC] ASDIRECTED Care 12/28/17 20:03 Ordered Abdomen Pelvis w Cont [CT] Stat Exams 12/28/17 20:38 Ordered Chest 2V [CR] Stat Exams 12/28/17 20:02 Ordered Labs: Laboratory Tests 12/28/17 12/28/17 Range/Units 20:10 20:10 WBC 14.5 H (5.0-10.0) 10^3/uL RBC 4.13 L (4.50-6.00) 10^6/uL Hgb 12.4 L D (13.0-17.0) g/dL Hct 38.5 L (40.0-52.0) % MCV 93.0 H (82.0-92.0) fL MCH 30.0 (27.0-31.0) pg MCHC 32.3 (32.0-36.0) g/dL RDW 13.4 (11.5-14.5) % Plt Count 308 H D (150-300) 10^3/uL MPV 7.5 (7.4-10.4) fL Neut % (Auto) 67.0 (50.0-70.0) % Lymph % (Auto) 19.3 L (20.0-40.0) % [place] % (Auto) 9.8 H (2.0-8.0) % Eos % (Auto) 3.5 H (1.0-3.0) % Baso % (Auto) 0.4 (0.0-1.0) % Neut # (Auto) 9.7 H (2.5-7.0) 10^3/uL Lymph # (Auto) 2.8 (1.0-4.0) 10^3/uL [place] # (Auto) 1.4 H (0.1-0.8) 10^3/uL Eos # (Auto) 0.5 H (0.1-0.3) 10^3/uL Baso # (Auto) 0.1 (0.0-0.1) 10^3/uL Sodium 140 (136-145) mmol/L Potassium 5.2 (3.3-5.3) mmol/L Chloride 104 (98-115) mmol/L Carbon Dioxide 29.1 (21.0-32.0) mmol/L BUN 32 H (6-25) mg/dL Creatinine 1.33 H (0.51-1.17) mg/dL Est Cr Clr Drug Dosing 38.18 mL/min Estimated GFR (MDRD) 52 mL/min Glucose 138 H (70-110) mg/dL Calcium 8.8 (8.7-10.3) mg/dL Meds: Medications Discontinued Medications Generic Name Dose Route Start Last Admin Trade Name Freq PRN Reason Stop Dose Admin Albuterol/Ipratropium 3 ml 12/28/17 20:02 Duoneb 3.0-0.5 Mg/3 Ml NEB 12/28/17 20:03 ONETIME ONE Albuterol/Ipratropium Confirm 12/28/17 20:02 Duoneb 3.0-0.5 Mg/3 Ml Administered 12/28/17 20:03 Dose 3 ml .ROUTE .STK-MED ONE Methylprednisolone Sodium Succinate 125 mg 12/28/17 20:02 Solu-Medrol IVPUSH 12/28/17 20:03 ONETIME ONE Methylprednisolone Sodium Succinate Confirm 12/28/17 20:03 Solu-Medrol Administered 12/28/17 20:04 Dose 125 mg .ROUTE .STK-MED ONE - Re-Assessments/Exams Free Text/Narrative Re-Assessment/Exam: 12/28/17 20:28 Lung sounds improved modestly but noticeably after the DuoNeb. 12/28/17 21:07 The radiologist called with CXR report of free air under the abdomen and suspicion of perforated viscus. He recommends CT of abdomen/pelvis including lower lung ramirez. This was ordered and as I was discussing with patient, he said he didn't the CT. I discussed with him what could likely happen including infection, sepsis and related to this. He tells me that he would like to since his 5 years ago and he has no family. I tried to explain to him that this may be quite painful and may have more dyspnea but he is very sure he doesn't want the CT. After several minutes of talking about it he told me bluntly to stop talking about it. He readily signed the form refusing treatment and was discharged in stable (for now) condition. We are sending home a hose for his DuoNeb and 4 duoneb vials since he now tells us he is out and hasn't been using them at home for several days. He has medicaid and has prescriptions ready for him to [facility]. 12/28/17 21:18 We confirmed with him that he has a living will and is DNR as we want to comply with his wishes if he does have infection and sepsis in the near future. His wish is that he be allowed to but he doesn't want to alone in his bed at home; he would like at least one person to be with him. We discussed that he might like home health but he has already refused that he says. I called Dr. Peters and discussed this with him as well. Departure - Departure Time of Disposition: 21:04 Disposition: Home, Self-Care 01 Condition: Fair Clinical Impression: COPD exacerbation, Perforated abdominal viscus - Discharge Information Forms: ED Department Discharge Additional Instructions: 1. Use the DuoNebs as directed. 2. Follow up with your PCP in 1-2 days for recheck. - My Orders Last 24 Hours: My Active Orders 12/28/17 20:02 Chest 2V [CR] Stat 12/28/17 20:03 RT Aerosol Therapy [RC] ASDIRECTED 12/28/17 20:38 Abdomen Pelvis w Cont [CT] Stat - Assessment/Plan Last 24 Hours: My Active Orders 12/28/17 20:02 Chest 2V [CR] Stat 12/28/17 20:03 RT Aerosol Therapy [RC] ASDIRECTED 12/28/17 20:38 Abdomen Pelvis w Cont [CT] Stat
[2017-12-28] MEDS: Simethicone 80 MG Tab.Chew PO ONE (20:30)
[2017-12-28 20:52] VITALS: BP 128/76
[2017-12-28] MEDS: Albuterol/Ipratropium 3.0-0.5 MG/3 ML Neb Soln ONE (22:59)
[2017-12-28] MEDS: methylPREDNISolone Sodium Succinate 125 MG/2 ML SDV ONE (23:00)
== END 2017-12-28 21:20 | disposition home or self-care (01) ==
LOC: KA.ED 19:50
DX: J44.1 Chronic obstructive pulmonary disease with (acute) exacerbation (principal); K63.1 Perforation of intestine (nontraumatic); F17.210 Nicotine dependence, cigarettes, uncomplicated; Z88.2 Allergy status to sulfonamides; Z79.899 Other long term (current) drug therapy
CPT/HCPCS: 71046; 80048; 85025; 94640; 96374; 99285; A9270-GY; J2930

== ENCOUNTER 2018-02-23 18:45 | Inpatient (IN) | payer MEDICARE, MEDICAID ==
[2018-02-23] MEDS ORDERED: Albuterol/Ipratropium 3.0-0.5 MG/3 ML Neb Soln ONE (19:07)
[2018-02-23] MEDS ORDERED: Sodium Chloride 0.9% 5 ML Syringe FLUSH PRN (19:12)
[2018-02-23] MEDS ORDERED: methylPREDNISolone Sodium Succinate 125 MG/2 ML SDV IVPUSH ONE (19:12)
[2018-02-23] MEDS ORDERED: Albuterol/Ipratropium 3.0-0.5 MG/3 ML Neb Soln NEB ONE ×2 (19:12→19:40)
[2018-02-23] MEDS ORDERED: Sodium Chloride 0.9% 1,000 ML IV ONE (19:17)
--- NOTE | 2018-02-23 19:24 | EDM.PDOC ---
ED HPI GENERAL MEDICAL PROBLEM - General Chief Complaint: Respiratory Problem Stated Complaint: SHORTNESS OF BREATH Time Seen by Provider: 02/23/18 19:00 Source of Information: Reports: Patient History Limitations: Reports: No Limitations - History of Present Illness INITIAL COMMENTS - FREE TEXT/NARRATIVE: 77 YO WM with severe COPD presents to ER with complaints of worsening shortness of breath x 3 days. Pt reports he was seen in [place] ER 3 days ago for same. Pt was sent home on prednisone 40mg PO QD and duoneb treatments. Pt reports he' s been using updrafts TID without improvement. Pt reports he typically will smoke approx 3 cigarettes a day and states he was able to smoke 3 today. Pt reports he's symptoms became more severe prior to arrival and home neb tx x 1 but didn't improve his symptoms prompting ER visit. Pt denies any chest pain, no diaphoresis, no dizziness or nausea/vomiting. Pt denies any fever/chills. Pt states he is a DNR/DNI and is clear he does not want to be intubated if he breathing worsens. Pt would like minimal work up in ER but is agreeable to hospitalization for oxygen and supportive care if necessary. Duration: Chronic Location: Reports: Generalized Severity: Severe Improves with: Reports: None Worsens with: Reports: Breathing, Movement Associated Symptoms: Reports: cough w sputum. Denies: Chest Pain, Diaphoresis, Fever/Chills, Nausea/Vomiting, Syncope, Weakness - Related Data Allergies Allergy/AdvReac Type Severity Reaction Status Date / Time Sulfa (Sulfonamide Allergy Rash Verified 02/23/18 19:57 Antibiotics) Home Meds: Home Meds Fluticasone/Salmeterol [Advair 500-50] 1 puff INH BID 11/12/13 [History] Acetaminophen [Tylenol Extra Strength] 500 mg PO BID 07/29/17 [History] Tiotropium [Spiriva Handihaler] 18 mcg INH DAILY 07/29/17 [History] Albuterol/Ipratropium [DuoNeb 3.0-0.5 MG/3 ML] 3 ml NEB QID 10/20/17 [History] Past Medical History HEENT History: Reports: Hard of Hearing Respiratory History: Reports: COPD Other Respiratory History: every day smoker Gastrointestinal History: Reports: None Genitourinary History: Reports: Prostate Disorder, Other (See Below) Other Genitourinary History: prostate ca Musculoskeletal History: Reports: Fracture Neurological History: Reports: None Psychiatric History: Reports: Anxiety, Depression Endocrine/Metabolic History: Reports: None Hematologic History: Reports: None Oncologic (Cancer) History: Reports: Prostate - Infectious Disease History Infectious Disease History: Reports: None - Past Surgical History HEENT Surgical History: Reports: Eye Surgery Other HEENT Surgeries/Procedures: plastic lenses put in Respiratory Surgical History: Reports: None GI Surgical History: Reports: Colonoscopy Male Surgical History: Reports: Prostatectomy Musculoskeletal Surgical History: Reports: Hip Replacement Oncologic Surgical History: Reports: None Social & Family History - Family History Family Medical History: Noncontributory - Tobacco Use Smoking Status *Q: Current Every Day Smoker Years of Tobacco use: 60 Packs/Tins Daily: 0.5 Used Tobacco, but Quit: Yes Month/Year Tobacco Last Used: april Second Hand Smoke Exposure: No - Caffeine Use Caffeine Use: Reports: Coffee - Alcohol Use Days Per Week of Alcohol Use: 2 Number of Drinks Per Day: 1 Total Drinks Per Week: 2 - Recreational Drug Use Recreational Drug Use: No ED ROS GENERAL - Review of Systems Review Of Systems: See Below Constitutional: Reports: No Symptoms HEENT: Reports: No Symptoms Respiratory: Reports: Shortness of Breath, Wheezing, Cough, Sputum. Denies: Pleuritic Chest Pain, Hemoptysis Cardiovascular: Reports: Dyspnea on Exertion. Denies: Chest Pain, Blood Pressure Problem, Edema, Lightheadedness, Orthopnea, Palpitations, PND, Syncope Endocrine: Reports: No Symptoms GI/Abdominal: Reports: No Symptoms : Reports: No Symptoms Musculoskeletal: Reports: No Symptoms Skin: Reports: No Symptoms Neurological: Reports: No Symptoms Psychiatric: Reports: No Symptoms Hematologic/Lymphatic: Reports: No Symptoms Immunologic: Reports: No Symptoms ED EXAM, GENERAL - Physical Exam Exam: See Below Exam Limited By: No Limitations General Appearance: Alert, WD/WN, Mild Distress Head: Atraumatic, Normocephalic Neck: Normal Inspection, Supple, Non-Tender, Full Range of Motion Respiratory/Chest: Respiratory Distress, Wheezing, Accessory Muscle Use, Retractions Cardiovascular: Normal Peripheral Pulses, Regular Rate, Rhythm, No Edema, No Gallop, No JVD, No Murmur, No Rub GI/Abdominal: Normal Bowel Sounds, Soft, Non-Tender, No Organomegaly, No Distention, No Abnormal Bruit, No Mass Back Exam: Normal Inspection, Full Range of Motion, NT Extremities: Normal Inspection, Normal Range of Motion, Non-Tender, Normal Capillary Refill, No Pedal Edema Neurological: Alert, Oriented, CN II-XII Intact, Normal Cognition, Normal Gait, Normal Reflexes, No Motor/Sensory Deficits Psychiatric: Normal Affect, Normal Mood Skin Exam: Warm, Dry, Intact, Normal Color, No Rash Lymphatic: No Adenopathy Course - Vital Signs Last Recorded V/S: Last Vital Signs Temp 36.7 C 02/23/18 18:55 Pulse 114 H 02/23/18 18:55 Resp 36 H 02/23/18 18:55 BP 145/70 H 02/23/18 18:55 Pulse Ox 95 02/23/18 19:13 - Orders/Labs/Meds Orders: Active Orders 24 hr Category Date Time Status Patient Status Manage Transfer [TRANSFER] Routine ADT 02/23/18 19:49 Ordered Patient Status [ADT] Routine ADT 02/23/18 19:50 Ordered Bedrest Bathroom Privileges [RC] ASDIRECTED Care 02/23/18 19:50 Active Oxygen Therapy [RC] PRN Care 02/23/18 19:50 Active Peripheral IV Care [RC] . DIRECTED Care 02/23/18 19:13 Active Pulse Oximetry [RC] CONTINUOUS Care 02/23/18 19:52 Active RT Aerosol Therapy [RC] ASDIRECTED Care 02/23/18 19:13 Active RT Aerosol Therapy [RC] ASDIRECTED Care 02/23/18 19:43 Active RT Aerosol Therapy [RC] ASDIRECTED Care 02/23/18 19:54 Active VTE/DVT Education [RC] PER UNIT ROUTINE Care 02/23/18 19:50 Active Vital Signs [RC] Q4H Care 02/23/18 19:50 Active Regular Diet [DIET] Diet 02/24/18 Breakfast Active Chest 1V Frontal [CR] Stat Exams 02/23/18 19:12 Taken BASIC METABOLIC PANEL,BMP [CHEM] AM Lab 02/24/18 05:11 Ordered CBC WITH AUTO DIFF [HEME] AM Lab 02/24/18 05:11 Ordered CBC WITH AUTO DIFF [HEME] Stat Lab 02/23/18 19:12 Ordered COMPREHENSIVE METABOLIC PN,CMP [CHEM] Stat Lab 02/23/18 19:12 Ordered CULTURE SPUTUM + SMEAR [RM] Stat Lab 02/23/18 19:12 Ordered MAGNESIUM [CHEM] AM Lab 02/24/18 05:11 Ordered Acetaminophen [Tylenol Extra Strength] Med 02/23/18 21:00 Ordered 500 mg PO BID Albuterol/Ipratropium [DuoNeb 3.0-0.5 MG/3 ML] Med 02/23/18 19:50 Active 3 ml NEB Q4H PRN Azithromycin [Zithromax] 500 mg Med 02/23/18 20:00 Active Sodium Chloride 0.9% [Normal Saline] 250 ml IV Q24H Magnesium Sulfate [Magnesium Sulfate 50%] 2 gm Med 02/23/18 19:14 Active Sodium Chloride 0.9% [Normal Saline] 50 ml IV ONETIME Sodium Chloride 0.9% [Normal Saline] 1,000 ml Med 02/23/18 19:17 Active IV .BOLUS Sodium Chloride 0.9% [Normal Saline] 1,000 ml Med 02/23/18 20:00 Active IV ASDIRECTED Sodium Chloride 0.9% [Syrex Flush] Med 02/23/18 19:12 Active 5 ml FLUSH Q8HR PRN cefTRIAXone [Rocephin] Med 02/23/18 20:00 Active 1 gm IVPUSH Q24H methylPREDNISolone Sod Succ [Solu-MEDROL] Med 02/23/18 20:00 Active 80 mg IVPUSH Q8H Peripheral IV Insertion Adult [OM.PC] Routine Oth 02/23/18 19:12 Ordered Resuscitation Status Routine Resus Stat 02/23/18 19:50 Ordered Medication Orders Acetaminophen (Tylenol Extra Strength) 500 mg PO BID SCOTT Albuterol/Ipratropium (Duoneb 3.0-0.5 Mg/3 Ml) 3 ml NEB Q4H PRN PRN Reason: Shortness Of Breath/wheezing Ceftriaxone Sodium (Rocephin) 1 gm IVPUSH Q24H [facility]OTT Magnesium Sulfate 2 gm/ Sodium (Chloride) 54 mls @ 50 mls/hr IV ONETIME ONE Stop: 02/23/18 20:16 Sodium Chloride (Normal Saline) 1,000 mls @ 999 mls/hr IV .BOLUS ONE Stop: 02/23/18 20:17 Azithromycin 500 mg/ Sodium (Chloride) 250 mls @ 250 mls/hr IV Q24H SCOTT Sodium Chloride (Normal Saline) 1,000 mls @ 75 mls/hr IV ASDIRECTED SCOTT Methylprednisolone Sodium Succinate (Solu-Medrol) 80 mg IVPUSH Q8H SCOTT Sodium Chloride (Syrex Flush) 5 ml FLUSH Q8HR PRN PRN Reason: Keep Vein Open Meds: Medications Generic Name Dose Route Start Last Admin Trade Name Bailey PRN Reason Stop Dose Admin Acetaminophen 500 mg 02/23/18 21:00 Tylenol Extra Strength PO BID SCOTT Albuterol/Ipratropium 3 ml 02/23/18 19:50 Duoneb 3.0-0.5 Mg/3 Ml NEB Q4H PRN Shortness Of Breath/wheezing Ceftriaxone Sodium 1 gm 02/23/18 20:00 Rocephin IVPUSH Q24H SCOTT Magnesium Sulfate 2 gm/ Sodium 54 mls @ 50 mls/hr 02/23/18 19:14 Chloride IV 02/23/18 20:16 ONETIME ONE Sodium Chloride 1,000 mls @ 999 mls/hr 02/23/18 19:17 Normal Saline IV 02/23/18 20:17 .BOLUS ONE Azithromycin 500 mg/ Sodium 250 mls @ 250 mls/hr 02/23/18 20:00 Chloride IV Q24H SCOTT Sodium Chloride 1,000 mls @ 75 mls/hr 02/23/18 20:00 Normal Saline IV ASDIRECTED SCOTT Methylprednisolone Sodium Succinate 80 mg 02/23/18 20:00 Solu-Medrol IVPUSH Q8H SCOTT Sodium Chloride 5 ml 02/23/18 19:12 Syrex Flush FLUSH Q8HR PRN Keep Vein Open Discontinued Medications Generic Name Dose Route Start Last Admin Trade Name Bailey PRN Reason Stop Dose Admin Albuterol/Ipratropium Confirm 02/23/18 19:07 02/23/18 19:42 Duoneb 3.0-0.5 Mg/3 Ml Administered 02/23/18 19:08 Not Given Dose 3 ml .ROUTE .STK-MED ONE Albuterol/Ipratropium 3 ml 02/23/18 19:12 02/23/18 19:15 Duoneb 3.0-0.5 Mg/3 Ml NEB 02/23/18 19:13 3 ml ONETIME ONE Administration Albuterol/Ipratropium 3 ml 02/23/18 19:40 Duoneb 3.0-0.5 Mg/3 Ml NEB 02/23/18 19:41 ONETIME ONE Methylprednisolone Sodium Succinate 125 mg 02/23/18 19:12 02/23/18 19:37 Solu-Medrol IVPUSH 02/23/18 19:13 125 mg ONETIME ONE Administration - Radiology Interpretation Free Text/Narrative:: CXR- RLL pneumonia Departure - Departure Time of Disposition: 19:48 Disposition: Admitted As Inpatient 65 Condition: Serious Clinical Impression: COPD exacerbation Pneumonia Qualifiers: Pneumonia type: due to unspecified organism Laterality: right Lung location: lower lobe of lung Qualified Code(s): J18.1 - Lobar pneumonia, unspecified organism - Discharge Information Referrals: PCP,Not In Area [Primary Care Provider] - - My Orders Last 24 Hours: My Active Orders 02/23/18 19:12 Chest 1V Frontal [CR] Stat CBC WITH AUTO DIFF [HEME] Stat COMPREHENSIVE METABOLIC PN,CMP [CHEM] Stat CULTURE SPUTUM + SMEAR [RM] Stat Sodium Chloride 0.9% [Syrex Flush] 5 ml FLUSH Q8HR PRN Peripheral IV Insertion Adult [OM.PC] Routine 02/23/18 19:13 Peripheral IV Care [RC] . DIRECTED RT Aerosol Therapy [RC] ASDIRECTED 02/23/18 19:14 Magnesium Sulfate [Magnesium Sulfate 50%] 2 gm Sodium Chloride 0.9% [Normal Saline] 50 ml IV ONETIME 02/23/18 19:17 Sodium Chloride 0.9% [Normal Saline] 1,000 ml IV .BOLUS 02/23/18 19:43 RT Aerosol Therapy [RC] ASDIRECTED 02/23/18 19:49 Patient Status Manage Transfer [TRANSFER] Routine 02/23/18 19:50 Patient Status [ADT] Routine Bedrest Bathroom Privileges [RC] ASDIRECTED Oxygen Therapy [RC] PRN VTE/DVT Education [RC] PER UNIT ROUTINE Vital Signs [RC] Q4H Albuterol/Ipratropium [DuoNeb 3.0-0.5 MG/3 ML] 3 ml NEB Q4H PRN Resuscitation Status Routine 02/23/18 19:52 Pulse Oximetry [RC] CONTINUOUS 02/23/18 19:54 RT Aerosol Therapy [RC] ASDIRECTED 02/23/18 20:00 Azithromycin [Zithromax] 500 mg Sodium Chloride 0.9% [Normal Saline] 250 ml IV Q24H Sodium Chloride 0.9% [Normal Saline] 1,000 ml IV ASDIRECTED cefTRIAXone [Rocephin] 1 gm IVPUSH Q24H methylPREDNISolone Sod Succ [Solu-MEDROL] 80 mg IVPUSH Q8H 02/23/18 21:00 Acetaminophen [Tylenol Extra Strength] 500 mg PO BID 02/24/18 05:11 BASIC METABOLIC PANEL,BMP [CHEM] AM CBC WITH AUTO DIFF [HEME] AM MAGNESIUM [CHEM] AM 02/24/18 Breakfast Regular Diet [DIET] - Assessment/Plan Last 24 Hours: My Active Orders 02/23/18 19:12 Chest 1V Frontal [CR] Stat CBC WITH AUTO DIFF [HEME] Stat COMPREHENSIVE METABOLIC PN,CMP [CHEM] Stat CULTURE SPUTUM + SMEAR [RM] Stat Sodium Chloride 0.9% [Syrex Flush] 5 ml FLUSH Q8HR PRN Peripheral IV Insertion Adult [OM.PC] Routine 02/23/18 19:13 Peripheral IV Care [RC] . DIRECTED RT Aerosol Therapy [RC] ASDIRECTED 02/23/18 19:14 Magnesium Sulfate [Magnesium Sulfate 50%] 2 gm Sodium Chloride 0.9% [Normal Saline] 50 ml IV ONETIME 02/23/18 19:17 Sodium Chloride 0.9% [Normal Saline] 1,000 ml IV .BOLUS 02/23/18 19:43 RT Aerosol Therapy [RC] ASDIRECTED 02/23/18 19:49 Patient Status Manage Transfer [TRANSFER] Routine 02/23/18 19:50 Patient Status [ADT] Routine Bedrest Bathroom Privileges [RC] ASDIRECTED Oxygen Therapy [RC] PRN VTE/DVT Education [RC] PER UNIT ROUTINE Vital Signs [RC] Q4H Albuterol/Ipratropium [DuoNeb 3.0-0.5 MG/3 ML] 3 ml NEB Q4H PRN Resuscitation Status Routine 02/23/18 19:52 Pulse Oximetry [RC] CONTINUOUS 02/23/18 19:54 RT Aerosol Therapy [RC] ASDIRECTED 02/23/18 20:00 Azithromycin [Zithromax] 500 mg Sodium Chloride 0.9% [Normal Saline] 250 ml IV Q24H Sodium Chloride 0.9% [Normal Saline] 1,000 ml IV ASDIRECTED cefTRIAXone [Rocephin] 1 gm IVPUSH Q24H methylPREDNISolone Sod Succ [Solu-MEDROL] 80 mg IVPUSH Q8H 02/23/18 21:00 Acetaminophen [Tylenol Extra Strength] 500 mg PO BID 02/24/18 05:11 BASIC METABOLIC PANEL,BMP [CHEM] AM CBC WITH AUTO DIFF [HEME] AM MAGNESIUM [CHEM] AM 02/24/18 Breakfast Regular Diet [DIET] Assessment:: 1. RLL pneumonia 2. COPD exacerbation Plan: 1. rocephin 1g IV QD 2. Zithromax 500mg IV QD 3. Duoneb Q4 and PRN 4. Solumedrol 80mg IV Q8 5. repeat labs in am 6. NS 75cc/hr 7. oxygen 2L NC
[2018-02-23] MEDS: Acetaminophen 500 MG Tab PO SCH (20:20)
[2018-02-23] MEDS: methylPREDNISolone Sodium Succinate 125 MG/2 ML SDV IVPUSH SCH (20:28)
[2018-02-23] MEDS ORDERED: LORazepam 2 MG/ML SDV IVPUSH ONE (20:43)
[2018-02-23] MEDS ORDERED: LORazepam 2 MG/ML SDV ONE (20:50)
[2018-02-23] MEDS: cefTRIAXone 1 GM Vial IVPUSH SCH (21:36)
[2018-02-23] MEDS: Azithromycin 500 MG in Sodium Chloride 0.9% 250 ML IV SCH (22:11)
[2018-02-23] MEDS: Sodium Chloride 0.9% 1,000 ML IV SCH (22:18)
[2018-02-24] MEDS: Albuterol/Ipratropium 3.0-0.5 MG/3 ML Neb Soln NEB PRN ×5 (02:50→20:32)
[2018-02-24] MEDS: methylPREDNISolone Sodium Succinate 125 MG/2 ML SDV IVPUSH SCH ×3 (03:01→20:31)
[2018-02-24 08:11] LABS: CHLORIDE,CL 110 mmol/L (98-115); SODIUM,NA 146 mmol/L (136-145)
[2018-02-24] MEDS: Acetaminophen 500 MG Tab PO SCH ×2 (08:27→21:21)
--- NOTE | 2018-02-24 08:55 | PCM.PN ---
- General Info Date of Service: 02/24/18 Admission Dx/Problem (Free Text): COPD exacerbation, RLL PNA, hyperkalemia. - Review of Systems Systems Review Comment:: Triston is seen today in inpatient rounds. He was admitted on 02/23/18 with COPD exacerbation, RLL PNA and hyperkalemia. His PCP is at the [facility] in [place]. I see he is in a splint. He broke his arm 2 weeks ago when he slipped at [employer]. He states he was also in the ER in [place] 3 days ago for SOB and discharged with nebulizers and steroids. He felt like "I was going to " and came to the ER in [place] yesterday. He is not very pleasant this morning. I mention his potassium is high and he asks "why is that?". He tells me it was high earlier as well and he received Kayexelate and "then it came down but why it is high again?" He does endorse eating potassium rich foods. He states the other day he ate 5 bananas as "they were going bad and I didn't want to waste them". He states his breathing feels better today and he is wondering about going home because "here they wake me up all the damn time and I can't get any rest". He denies pain. He has not had any change in medications. He states he only uses his inhalers and nebulizers at home for meds. No N/V/D. - Patient Data Vitals - Most Recent: Last Vital Signs Temp 98.6 F 02/24/18 06:56 Pulse 92 02/24/18 06:58 Resp 20 02/24/18 06:56 BP 124/72 02/24/18 06:56 Pulse Ox 97 02/24/18 06:58 Weight - Most Recent: 136 lb 2 oz I&O - Last 24 Hours: Intake & Output 02/23/18 02/24/18 02/24/18 22:59 06:59 14:59 Intake Total 1155 1048 Output Total 1100 Balance 1155 -52 Lab Results Last 24 Hours: Laboratory Results - last 24 hr 02/23/18 02/23/18 02/24/18 Range/Units 21:00 21:00 07:25 WBC 19.1 H 14.0 H (5.0-10.0) 10^3/uL RBC 3.18 L 2.97 L (4.50-6.00) 10^6/uL Hgb 10.1 L D 9.1 L (13.0-17.0) g/dL Hct 30.1 L 27.8 L (40.0-52.0) % MCV 94.5 H 93.6 H (82.0-92.0) fL MCH 31.6 H 30.6 (27.0-31.0) pg MCHC 33.4 32.7 (32.0-36.0) g/dL RDW 14.0 13.8 (11.5-14.5) % Plt Count 393 H D 356 H (150-300) 10^3/uL MPV 6.8 L 6.6 L (7.4-10.4) fL Neut % (Auto) 95.8 H (50.0-70.0) % Lymph % (Auto) 3.5 L (20.0-40.0) % Dawson % (Auto) 0.1 L (2.0-8.0) % Eos % (Auto) 0.6 L (1.0-3.0) % Baso % (Auto) 0.0 (0.0-1.0) % Neut # (Auto) 13.4 H (2.5-7.0) 10^3/uL Lymph # (Auto) 0.5 L (1.0-4.0) 10^3/uL Dawson # (Auto) 0.0 L (0.1-0.8) 10^3/uL Eos # (Auto) 0.1 (0.1-0.3) 10^3/uL Baso # (Auto) 0.0 (0.0-0.1) 10^3/uL Add Manual Diff Yes Neutrophils % (Manual) 91 H (50-70) % Lymphocytes % (Manual) 7 L (20-40) % Eosinophils % (Manual) 2 (1-3) % Absolute Neutrophils 17.3810 Lymphocytes # (Manual) 1.3370 Eosinophils # (Manual) 0.3820 Sodium 139 (136-145) mmol/L Potassium 5.9 H (3.3-5.3) mmol/L Chloride 110 (98-115) mmol/L Carbon Dioxide 26.4 (21.0-32.0) mmol/L BUN 48 H (6-25) mg/dL Creatinine 1.25 H (0.51-1.17) mg/dL Est Cr Clr Drug Dosing 42.54 mL/min Estimated GFR (MDRD) 56 mL/min Glucose 166 H (70-110) mg/dL Calcium 8.4 L (8.7-10.3) mg/dL Magnesium (1.8-2.4) mg/dL Total Bilirubin 0.2 (0.2-1.0) mg/dL AST 17 (15-37) U/L ALT 22 (12-78) U/L Alkaline Phosphatase 123 H (46-116) IU/L Total Protein 6.8 (6.4-8.2) g/dL Albumin 2.96 L (3.00-4.80) g/dL 02/24/18 Range/Units 07:25 WBC (5.0-10.0) 10^3/uL RBC (4.50-6.00) 10^6/uL Hgb (13.0-17.0) g/dL Hct (40.0-52.0) % MCV (82.0-92.0) fL MCH (27.0-31.0) pg MCHC (32.0-36.0) g/dL RDW (11.5-14.5) % Plt Count (150-300) 10^3/uL MPV (7.4-10.4) fL Neut % (Auto) (50.0-70.0) % Lymph % (Auto) (20.0-40.0) % Dawson % (Auto) (2.0-8.0) % Eos % (Auto) (1.0-3.0) % Baso % (Auto) (0.0-1.0) % Neut # (Auto) (2.5-7.0) 10^3/uL Lymph # (Auto) (1.0-4.0) 10^3/uL Dawson # (Auto) (0.1-0.8) 10^3/uL Eos # (Auto) (0.1-0.3) 10^3/uL Baso # (Auto) (0.0-0.1) 10^3/uL Add Manual Diff Neutrophils % (Manual) (50-70) % Lymphocytes % (Manual) (20-40) % Eosinophils % (Manual) (1-3) % Absolute Neutrophils Lymphocytes # (Manual) Eosinophils # (Manual) Sodium 146 H (136-145) mmol/L Potassium 6.3 H (3.3-5.3) mmol/L Chloride 110 (98-115) mmol/L Carbon Dioxide 23.0 (21.0-32.0) mmol/L BUN 42 H (6-25) mg/dL Creatinine 1.13 (0.51-1.17) mg/dL Est Cr Clr Drug Dosing 47.05 mL/min Estimated GFR (MDRD) > 60 mL/min Glucose 219 H (70-110) mg/dL Calcium 7.9 L (8.7-10.3) mg/dL Magnesium 2.6 H (1.8-2.4) mg/dL Total Bilirubin (0.2-1.0) mg/dL AST (15-37) U/L ALT (12-78) U/L Alkaline Phosphatase (46-116) IU/L Total Protein (6.4-8.2) g/dL Albumin (3.00-4.80) g/dL Med Orders - Current: Current Medications Acetaminophen (Tylenol Extra Strength) 500 mg PO BID [facility] Last Admin: 02/24/18 08:27 Dose: 500 mg Albuterol/Ipratropium (Duoneb 3.0-0.5 Mg/3 Ml) 3 ml NEB Q4H PRN PRN Reason: Shortness Of Breath/wheezing Last Admin: 02/24/18 06:58 Dose: 3 ml Ceftriaxone Sodium (Rocephin) 1 gm IVPUSH Q24H [facility] Last Admin: 02/23/18 21:36 Dose: 1 gm Azithromycin 500 mg/ Sodium (Chloride) 250 mls @ 250 mls/hr IV Q24H [facility] Last Admin: 02/23/18 22:11 Dose: 250 mls/hr Sodium Chloride (Normal Saline) 1,000 mls @ 75 mls/hr IV ASDIRECTED [facility] Last Admin: 02/23/18 22:18 Dose: 75 mls/hr Methylprednisolone Sodium Succinate (Solu-Medrol) 80 mg IVPUSH Q8H [facility] Last Admin: 02/24/18 03:01 Dose: 80 mg Sodium Chloride (Syrex Flush) 5 ml FLUSH Q8HR PRN PRN Reason: Keep Vein Open Sodium Polystyrene Sulfonate (Kayexalate) 15 gm PO Q8H SCOTT Discontinued Medications Albuterol/Ipratropium (Duoneb 3.0-0.5 Mg/3 Ml) Confirm Administered Dose 3 ml .ROUTE .STK-MED ONE Stop: 02/23/18 19:08 Last Admin: 02/23/18 19:42 Dose: Not Given Albuterol/Ipratropium (Duoneb 3.0-0.5 Mg/3 Ml) 3 ml NEB ONETIME ONE Stop: 02/23/18 19:13 Last Admin: 02/23/18 19:15 Dose: 3 ml Albuterol/Ipratropium (Duoneb 3.0-0.5 Mg/3 Ml) 3 ml NEB ONETIME ONE Stop: 02/23/18 19:41 Last Admin: 02/23/18 19:50 Dose: 3 ml Magnesium Sulfate 2 gm/ Sodium (Chloride) 54 mls @ 50 mls/hr IV ONETIME ONE Stop: 02/23/18 20:16 Last Admin: 02/23/18 20:00 Dose: 50 mls/hr Sodium Chloride (Normal Saline) 1,000 mls @ 999 mls/hr IV .BOLUS ONE Stop: 02/23/18 20:17 Last Admin: 02/23/18 20:00 Dose: 999 mls/hr Lorazepam (Ativan) 1 mg IVPUSH ONETIME ONE Stop: 02/23/18 20:44 Last Admin: 02/23/18 21:00 Dose: 1 mg Lorazepam (Ativan) Confirm Administered Dose 2 mg .ROUTE .STK-MED ONE Stop: 02/23/18 20:51 Last Admin: 02/23/18 21:22 Dose: Not Given Methylprednisolone Sodium Succinate (Solu-Medrol) 125 mg IVPUSH ONETIME ONE Stop: 02/23/18 19:13 Last Admin: 02/23/18 19:37 Dose: 125 mg - Exam Quality Assessment: Supplemental Oxygen General: Alert, Oriented, No Acute Distress Lungs: Decreased Breath Sounds, Crackles, Wheezing Cardiovascular: Regular Rate, Regular Rhythm, No Murmurs GI/Abdominal Exam: Normal Bowel Sounds - Problem List & Annotations (1) Hyperkalemia SNOMED Code(s): 69598244 Code(s): E87.5 - HYPERKALEMIA Status: Acute Current Visit: Yes (2) Anemia SNOMED Code(s): 454257712 Code(s): D64.9 - ANEMIA, UNSPECIFIED Status: Acute Current Visit: Yes (3) COPD exacerbation SNOMED Code(s): 587939930 Code(s): J44.1 - CHRONIC OBSTRUCTIVE PULMONARY DISEASE W (ACUTE) EXACERBATION Status: Acute Current Visit: Yes (4) Pneumonia SNOMED Code(s): 700555231 Code(s): J18.9 - PNEUMONIA, UNSPECIFIED ORGANISM Status: Acute Current Visit: Yes Qualifiers: Pneumonia type: due to unspecified organism Laterality: right Lung location: lower lobe of lung Qualified Code(s): J18.1 - Lobar pneumonia, unspecified organism - Problem List Review Problem List Initiated/Reviewed/Updated: Yes - My Orders Last 24 Hours: My Active Orders 02/24/18 08:49 ALDOSTERONE [REF] Routine RENIN ACTIVITY [REF] Routine 02/24/18 09:00 Sodium Polystyrene Sulfonate [Kayexalate] 15 gm PO Q8H 02/25/18 05:11 BMP [BASIC METABOLIC PANEL,BMP] [CHEM] AM CBC WITH AUTO DIFF [HEME] AM 02/26/18 05:11 BMP [BASIC METABOLIC PANEL,BMP] [CHEM] AM CBC WITH AUTO DIFF [HEME] AM 02/27/18 05:11 BMP [BASIC METABOLIC PANEL,BMP] [CHEM] AM CBC WITH AUTO DIFF [HEME] AM 02/28/18 05:11 BMP [BASIC METABOLIC PANEL,BMP] [CHEM] AM CBC WITH AUTO DIFF [HEME] AM 03/01/18 05:11 BMP [BASIC METABOLIC PANEL,BMP] [CHEM] AM CBC WITH AUTO DIFF [HEME] AM - Assessment Assessment:: COPD exacerbation RLL PNA Hyperkalemia Acute renal insufficiency Anemia Leukocytosis - Plan Plan:: COPD exacerbation. Continue oxygen, nebs, steroids. RLL PNA. Continue azithromycin and rocephin. Hyperkalemia. Start Kayexelate today. Will check Renin and Aldosterone levels. Acute renal insufficiency. Improved BUN and creatinine, continue with gentle hydration with NS at 75 cc per hour. Anemia. Stable. Transfusion not indicated at this time. Leukocytosis. Improved, likely due to combination of PNA and steroids. Daily labs.
[2018-02-24] MEDS: Sodium Polystyrene Sulfonate 15 GM/60 ML Susp 60 ML Bot PO SCH ×2 (10:33→18:18)
[2018-02-24] MEDS: Sodium Chloride 0.9% 1,000 ML IV SCH (12:32)
[2018-02-24] MEDS ORDERED: LORazepam 2 MG/ML SDV IVPUSH PRN (16:41)
[2018-02-24] MEDS ORDERED: Melatonin 3 MG Tab PO PRN (16:42)
[2018-02-24] MEDS: Morphine 4 MG/ML Syringe IVPUSH PRN ×2 (18:13→23:03)
[2018-02-24] MEDS: cefTRIAXone 1 GM Vial IVPUSH SCH (20:32)
[2018-02-24] MEDS: Azithromycin 500 MG in Sodium Chloride 0.9% 250 ML IV SCH (21:14)
[2018-02-25] MEDS: Sodium Polystyrene Sulfonate 15 GM/60 ML Susp 60 ML Bot PO SCH ×2 (02:47→10:32)
[2018-02-25] MEDS: methylPREDNISolone Sodium Succinate 125 MG/2 ML SDV IVPUSH SCH (03:52)
[2018-02-25] MEDS: Acetaminophen 500 MG Tab PO SCH (08:32)
[2018-02-25] MEDS: Albuterol/Ipratropium 3.0-0.5 MG/3 ML Neb Soln NEB PRN (08:33)
[2018-02-25 08:59] LABS: CHLORIDE,CL 110 mmol/L (98-115); SODIUM,NA 149 mmol/L (136-145)
[2018-02-25 12:40] VITALS: BP 133/75
--- NOTE | 2018-02-25 12:40 | PCM.DCSUM1 ---
Discharge Summary - Hospital Course HPI Initial Comments: 77 YO WM with severe COPD who presented to ER 2 days ago with severe shortness of breath and hypoxia. Pt was diagnosed with RLL pneumonia and idiopathic hypokalemia. Pt was treated with antibiotics, solumedrol, updrafts and supplemental oxygen for his breathing and kayexcelate and updrafts for his hypokalemia. Pt was noncompliant and obstinate regarding his care. Pt refused continuous nebulizer treatments, refused kayexcelate and refused to stay in the hospital any longer for further treatment. Pt is able to make clear and informed decisions at this time. Pt is alert and oriented, stable vital signs- SaO2 93% on RA and understands risks of and penitentiary disability by refusing care and leaving the hospital against medical advice. I tried to address his supplemental oxygen needs at home but was unable to make arrangements due to weekend and unavailability of home O2 at this time. Pt refused to wait until tuesday to make these arrangements. It is of my belief that this patient will get worse without medical intervention. I expressed this in great detail to patient who voiced understanding and did not sway him of his plan to leave AMA. - Discharge Data Discharge Date: 02/25/18 Discharge Disposition: Against Medical Advice 07 Condition: Serious - Patient Instructions Diet: Regular Diet as Tolerated Driving: Do Not Drive Showering/Bathing: May Shower - Discharge Plan Home Medications: Home Meds Fluticasone/Salmeterol [Advair 500-50] 1 puff INH BID 11/12/13 [History] Acetaminophen [Tylenol Extra Strength] 500 mg PO BID 07/29/17 [History] Tiotropium [Spiriva Handihaler] 18 mcg INH DAILY 07/29/17 [History] Albuterol/Ipratropium [DuoNeb 3.0-0.5 MG/3 ML] 3 ml NEB QID 10/20/17 [History] Prednisone [IJD: predniSONE] 40 mg PO WITHBREAKFAST 02/23/18 [History] Referrals: PCP,Not In Area [Primary Care Provider] - - Discharge Summary/Plan Comment DC Time >30 min.: Yes Discharge Summary/Plan Comment: Pt left AMA- instructed to return for worsening symptoms and suggested arrangements be made for supplemental O2 CHRISSY - Patient Data Vitals - Most Recent: Last Vital Signs Temp 36.4 C 02/25/18 06:07 Pulse 98 02/25/18 08:41 Resp 24 H 02/25/18 06:07 BP 105/60 02/25/18 06:07 Pulse Ox 97 02/25/18 09:16 Weight - Most Recent: 61.745 kg I&O - Last 24 hours: Intake & Output 02/24/18 02/25/18 02/25/18 22:59 06:59 14:59 Intake Total 380 450 Balance 380 450 Lab Results - Last 24 hrs: Laboratory Results - last 24 hr 02/24/18 02/25/18 02/25/18 Range/Units 15:45 08:05 08:05 WBC 16.2 H (5.0-10.0) 10^3/uL RBC 2.70 L (4.50-6.00) 10^6/uL Hgb 8.2 L (13.0-17.0) g/dL Hct 25.7 L (40.0-52.0) % MCV 95.0 H (82.0-92.0) fL MCH 30.2 (27.0-31.0) pg MCHC 31.8 L (32.0-36.0) g/dL RDW 14.1 (11.5-14.5) % Plt Count 349 H (150-300) 10^3/uL MPV 6.6 L (7.4-10.4) fL Neut % (Auto) 95.3 H (50.0-70.0) % Lymph % (Auto) 2.4 L (20.0-40.0) % [place] % (Auto) 2.1 (2.0-8.0) % Eos % (Auto) 0.1 L (1.0-3.0) % Baso % (Auto) 0.1 (0.0-1.0) % Neut # (Auto) 15.5 H (2.5-7.0) 10^3/uL Lymph # (Auto) 0.4 L (1.0-4.0) 10^3/uL [place] # (Auto) 0.3 (0.1-0.8) 10^3/uL Eos # (Auto) 0.0 L (0.1-0.3) 10^3/uL Baso # (Auto) 0.0 (0.0-0.1) 10^3/uL Sodium 149 H (136-145) mmol/L Potassium 5.6 H 6.1 H (3.3-5.3) mmol/L Chloride 110 (98-115) mmol/L Carbon Dioxide 28.3 (21.0-32.0) mmol/L BUN 45 H (6-25) mg/dL Creatinine 1.16 (0.51-1.17) mg/dL Est Cr Clr Drug Dosing 45.84 mL/min Estimated GFR (MDRD) > 60 mL/min Glucose 152 H (70-110) mg/dL Calcium 7.9 L (8.7-10.3) mg/dL B-Natriuretic Peptide 136 H (0-100) pg/mL JOSE Results - Last 24 hrs: Microbiology 02/23/18 19:12 - Final Sputum - Expectorated Med Orders - Current: Current Medications Acetaminophen (Tylenol Extra Strength) 500 mg PO BID [facility] Last Admin: 02/25/18 08:32 Dose: 500 mg Albuterol/Ipratropium (Duoneb 3.0-0.5 Mg/3 Ml) 3 ml NEB Q4H PRN PRN Reason: Shortness Of Breath/wheezing Last Admin: 02/25/18 08:33 Dose: 3 ml Ceftriaxone Sodium (Rocephin) 1 gm IVPUSH Q24H [facility] Last Admin: 02/24/18 20:32 Dose: 1 gm Azithromycin 500 mg/ Sodium (Chloride) 250 mls @ 250 mls/hr IV Q24H [facility] Last Admin: 02/24/18 21:14 Dose: 250 mls/hr Lorazepam (Ativan) 2 mg IVPUSH Q4H PRN PRN Reason: Anxiety Last Admin: 02/24/18 21:12 Dose: 2 mg Melatonin (Melatonin) 3 mg PO BEDTIME PRN PRN Reason: Insomnia Methylprednisolone Sodium Succinate (Solu-Medrol) 80 mg IVPUSH Q8H [facility] Last Admin: 02/25/18 03:52 Dose: 80 mg Morphine Sulfate (Morphine) 4 mg IVPUSH Q4H PRN PRN Reason: Pain Last Admin: 02/24/18 23:03 Dose: 4 mg Sodium Chloride (Syrex Flush) 5 ml FLUSH Q8HR PRN PRN Reason: Keep Vein Open Sodium Polystyrene Sulfonate (Kayexalate) 15 gm PO Q8H [facility] Last Admin: 02/25/18 10:32 Dose: 15 gm Discontinued Medications Albuterol/Ipratropium (Duoneb 3.0-0.5 Mg/3 Ml) Confirm Administered Dose 3 ml .ROUTE .STK-MED ONE Stop: 02/23/18 19:08 Last Admin: 02/23/18 19:42 Dose: Not Given Albuterol/Ipratropium (Duoneb 3.0-0.5 Mg/3 Ml) 3 ml NEB ONETIME ONE Stop: 02/23/18 19:13 Last Admin: 02/23/18 19:15 Dose: 3 ml Albuterol/Ipratropium (Duoneb 3.0-0.5 Mg/3 Ml) 3 ml NEB ONETIME ONE Stop: 02/23/18 19:41 Last Admin: 02/23/18 19:50 Dose: 3 ml Magnesium Sulfate 2 gm/ Sodium (Chloride) 54 mls @ 50 mls/hr IV ONETIME ONE Stop: 02/23/18 20:16 Last Admin: 02/23/18 20:00 Dose: 50 mls/hr Sodium Chloride (Normal Saline) 1,000 mls @ 999 mls/hr IV .BOLUS ONE Stop: 02/23/18 20:17 Last Admin: 02/23/18 20:00 Dose: 999 mls/hr Sodium Chloride (Normal Saline) 1,000 mls @ 75 mls/hr IV ASDIRECTED [facility] Last Admin: 02/24/18 12:32 Dose: 75 mls/hr Lorazepam (Ativan) 1 mg IVPUSH ONETIME ONE Stop: 02/23/18 20:44 Last Admin: 02/23/18 21:00 Dose: 1 mg Lorazepam (Ativan) Confirm Administered Dose 2 mg .ROUTE .STK-MED ONE Stop: 02/23/18 20:51 Last Admin: 02/23/18 21:22 Dose: Not Given Methylprednisolone Sodium Succinate (Solu-Medrol) 125 mg IVPUSH ONETIME ONE Stop: 02/23/18 19:13 Last Admin: 02/23/18 19:37 Dose: 125 mg
== END 2018-02-25 12:10 | disposition left against medical advice (07) | DRG 190 ==
LOC: KA.ED 18:45 → KA.MS 19:50
PROVIDERS: ADMIT Physician Assistant Medical; ATTEND Internal Medicine
DX: J44.0 Chronic obstructive pulmonary disease with (acute) lower respiratory infection (principal); J18.1 Lobar pneumonia, unspecified organism; J44.1 Chronic obstructive pulmonary disease with (acute) exacerbation; E87.5 Hyperkalemia; F41.8 Other specified anxiety disorders; Z51.5 Encounter for palliative care; Z66 Do not resuscitate; N28.9 Disorder of kidney and ureter, unspecified; D64.9 Anemia, unspecified; F17.210 Nicotine dependence, cigarettes, uncomplicated; Z88.2 Allergy status to sulfonamides; Z79.899 Other long term (current) drug therapy; Z85.46 Personal history of malignant neoplasm of prostate; D72.829 Elevated white blood cell count, unspecified
CPT/HCPCS: 36415; 71045; 80048; 80053; 82088; 83735; 83880; 84132; 84244; 85025; 87070; 87205; 94640; 96374; 99285; A9270-GY; J0456; J0696; J2060; J2270; J2930; J7030; J7050

== ENCOUNTER 2018-02-28 11:35 | Emergency (ER) | payer MEDICAID, MEDICARE ==
[2018-02-28] MEDS: Albuterol/Ipratropium 3.0-0.5 MG/3 ML Neb Soln NEB ONE ×2 (11:50→12:10)
--- NOTE | 2018-02-28 12:06 | EDM.PDOC ---
<Kiran Rushing - Last Filed: 02/28/18 12:50> ED HPI GENERAL MEDICAL PROBLEM - General Chief Complaint: Respiratory Problem Stated Complaint: SHORTNESS OF BREATH Time Seen by Provider: 02/28/18 11:59 Source of Information: Reports: Patient History Limitations: Reports: No Limitations - History of Present Illness INITIAL COMMENTS - FREE TEXT/NARRATIVE: 78 YO WM with history of end stage COPD who was recently hospitalized here for COPD exacerbation and after 2 days decided to sign out AMA. Pt decompensated and was admitted to [facility]. Pt reports he was discharged yesterday on home O2. Pt reports he left for breakfast this am and doesn't have a portable device causing his O2 sats to drop. Pt currently with coarse bilateral wheezes thorough all lung ramirez. Pt SaO2 100% on 4L. Pt agreeable to stay in hospital but continues to be adamant about no resuscitation to be performed DNR/ DNI. Duration: Chronic Location: Reports: Generalized Severity: Severe Improves with: Reports: None Worsens with: Reports: None Associated Symptoms: Reports: Cough, Shortness of Breath. Denies: Chest Pain, Diaphoresis, Fever/Chills, Nausea/Vomiting - Related Data Allergies Allergy/AdvReac Type Severity Reaction Status Date / Time Sulfa (Sulfonamide Allergy Rash Verified 02/23/18 19:57 Antibiotics) Home Meds: Home Meds Fluticasone/Salmeterol [Advair 500-50] 1 puff INH BID 11/12/13 [History] Acetaminophen [Tylenol Extra Strength] 500 mg PO BID 07/29/17 [History] Tiotropium [Spiriva Handihaler] 18 mcg INH DAILY 07/29/17 [History] Albuterol/Ipratropium [DuoNeb 3.0-0.5 MG/3 ML] 3 ml NEB QID 10/20/17 [History] Prednisone [IJD: predniSONE] 40 mg PO WITHBREAKFAST 02/23/18 [History] Albuterol [Ventolin HFA] 2 puff INH Q4H PRN 02/28/18 [History] Melatonin 3 mg PO BEDTIME 02/28/18 [History] Past Medical History HEENT History: Reports: Hard of Hearing Respiratory History: Reports: COPD Other Respiratory History: every day smoker Gastrointestinal History: Reports: None Genitourinary History: Reports: Prostate Disorder, Other (See Below) Other Genitourinary History: prostate ca Musculoskeletal History: Reports: Fracture Neurological History: Reports: None Psychiatric History: Reports: Anxiety, Depression Endocrine/Metabolic History: Reports: None Hematologic History: Reports: None Oncologic (Cancer) History: Reports: Prostate - Infectious Disease History Infectious Disease History: Reports: None - Past Surgical History HEENT Surgical History: Reports: Eye Surgery Other HEENT Surgeries/Procedures: plastic lenses put in Respiratory Surgical History: Reports: None GI Surgical History: Reports: Colonoscopy Male Surgical History: Reports: Prostatectomy Musculoskeletal Surgical History: Reports: Hip Replacement Oncologic Surgical History: Reports: None Social & Family History - Family History Family Medical History: Noncontributory - Tobacco Use Smoking Status *Q: Current Every Day Smoker Years of Tobacco use: 60 Packs/Tins Daily: 0.2 Used Tobacco, but Quit: Yes Month/Year Tobacco Last Used: april Second Hand Smoke Exposure: No - Caffeine Use Caffeine Use: Reports: Coffee - Alcohol Use Days Per Week of Alcohol Use: 2 Number of Drinks Per Day: 1 Total Drinks Per Week: 2 - Recreational Drug Use Recreational Drug Use: No ED ROS GENERAL - Review of Systems Review Of Systems: See Below Constitutional: Reports: Fatigue HEENT: Reports: No Symptoms Respiratory: Reports: Shortness of Breath, Wheezing, Cough Cardiovascular: Reports: No Symptoms Endocrine: Reports: No Symptoms GI/Abdominal: Reports: No Symptoms : Reports: No Symptoms Musculoskeletal: Reports: No Symptoms Skin: Reports: No Symptoms Neurological: Reports: No Symptoms Psychiatric: Reports: No Symptoms Hematologic/Lymphatic: Reports: No Symptoms Immunologic: Reports: No Symptoms ED EXAM, GENERAL - Physical Exam Exam: See Below Exam Limited By: No Limitations General Appearance: Alert, WD/WN, Moderate Distress Eye Exam: Bilateral Eye: EOMI, PERRL Neck: Normal Inspection, Supple, Non-Tender, Full Range of Motion Respiratory/Chest: Chest Non-Tender, Respiratory Distress, Wheezing, Accessory Muscle Use, Retractions, Prolonged Expiration Cardiovascular: Normal Peripheral Pulses, Regular Rate, Rhythm, No Edema, No Gallop, No JVD, No Murmur, No Rub GI/Abdominal: Normal Bowel Sounds, Soft, Non-Tender, No Organomegaly, No Distention, No Abnormal Bruit, No Mass Back Exam: Normal Inspection, Full Range of Motion, NT Extremities: Normal Inspection, Normal Range of Motion, Non-Tender, Normal Capillary Refill, No Pedal Edema Neurological: Alert, Oriented, CN II-XII Intact, Normal Cognition, Normal Gait, Normal Reflexes, No Motor/Sensory Deficits Psychiatric: Normal Affect, Anxious Skin Exam: Warm, Dry, Intact, Normal Color, No Rash Lymphatic: No Adenopathy Course - Vital Signs Last Recorded V/S: Last Vital Signs Temp 97.4 F 02/28/18 12:01 Pulse 100 02/28/18 12:01 Resp 20 02/28/18 12:01 BP 162/82 H 02/28/18 12:01 Pulse Ox 96 02/28/18 12:08 - Orders/Labs/Meds Orders: Active Orders 24 hr Category Date Time Status Oxygen Therapy Adult [Oxygen Therapy, ED] [] Care 02/28/18 12:08 Active ASDIRECTED RT Aerosol Therapy [] ASDIRECTED Care 02/28/18 12:05 Active RT Aerosol Therapy [] ASDIRECTED Care 02/28/18 12:08 Active Chest 1V Frontal [CR] Stat Exams 02/28/18 12:07 Taken Albuterol/Ipratropium [DuoNeb 3.0-0.5 MG/3 ML] Med 02/28/18 13:00 Active 3 ml NEB Q4HRRT methylPREDNISolone Sod Succ [Solu-MEDROL] Med 02/28/18 12:15 Active 125 mg IVPUSH DAILY Medication Orders Albuterol/Ipratropium (Duoneb 3.0-0.5 Mg/3 Ml) 3 ml NEB Q4HRRT [facility] Last Admin: 02/28/18 12:25 Dose: 3 ml Methylprednisolone Sodium Succinate (Solu-Medrol) 125 mg IVPUSH DAILY [facility] Last Admin: 02/28/18 12:30 Dose: 125 mg Labs: Laboratory Tests 02/28/18 02/28/18 02/28/18 Range/Units 12:35 12:35 12:50 WBC 14.9 H (5.0-10.0) 10^3/uL RBC 3.46 L (4.50-6.00) 10^6/uL Hgb 10.8 L D (13.0-17.0) g/dL Hct 32.7 L (40.0-52.0) % MCV 94.5 H (82.0-92.0) fL MCH 31.1 H (27.0-31.0) pg MCHC 32.9 (32.0-36.0) g/dL RDW 14.3 (11.5-14.5) % Plt Count 411 H (150-300) 10^3/uL MPV 6.7 L (7.4-10.4) fL Neut % (Auto) 85.5 H (50.0-70.0) % Lymph % (Auto) 6.2 L (20.0-40.0) % [place] % (Auto) 8.2 H (2.0-8.0) % Eos % (Auto) 0.0 L (1.0-3.0) % Baso % (Auto) 0.1 (0.0-1.0) % Neut # (Auto) 12.8 H (2.5-7.0) 10^3/uL Lymph # (Auto) 0.9 L (1.0-4.0) 10^3/uL [place] # (Auto) 1.2 H (0.1-0.8) 10^3/uL Eos # (Auto) 0.0 L (0.1-0.3) 10^3/uL Baso # (Auto) 0.0 (0.0-0.1) 10^3/uL ABG pH 7.33 L (7.35-7.45) ABG pCO2 62 H* (35-45) mmHG ABG pO2 136 H (80-105) mmHG ABG HCO3 32.1 H (22-26) mmol/L ABG Total CO2 34 H (23-27) mmol/L ABG O2 Saturation 99 H (95-98) % ABG Base Excess 6 H (-2-3) mmol/L O2 Delivery Device Nasal cannula Oxygen Flow Rate 4 L/min Sodium 141 (136-145) mmol/L Potassium 4.5 D (3.3-5.3) mmol/L Chloride 111 (98-115) mmol/L Carbon Dioxide 29.8 (21.0-32.0) mmol/L BUN 63 H* (6-25) mg/dL Creatinine 1.20 H (0.51-1.17) mg/dL Est Cr Clr Drug Dosing 44.83 mL/min Estimated GFR (MDRD) 58 mL/min Glucose 102 (70-110) mg/dL Calcium 8.7 (8.7-10.3) mg/dL Meds: Medications Generic Name Dose Route Start Last Admin Trade Name Freq PRN Reason Stop Dose Admin Albuterol/Ipratropium 3 ml 02/28/18 13:00 02/28/18 12:25 Duoneb 3.0-0.5 Mg/3 Ml NEB 3 ml Q4HRRT SCOTT Administration Methylprednisolone Sodium Succinate 125 mg 02/28/18 12:15 02/28/18 12:30 Solu-Medrol IVPUSH 125 mg DAILY SCOTT Administration Discontinued Medications Generic Name Dose Route Start Last Admin Trade Name Freq PRN Reason Stop Dose Admin Albuterol/Ipratropium 3 ml 02/28/18 12:05 02/28/18 12:10 Duoneb 3.0-0.5 Mg/3 Ml NEB 02/28/18 12:06 3 ml ONETIME ONE Administration - Radiology Interpretation Free Text/Narrative:: CXR- worsening RLL infiltrates from previous CXR on 02/25/2018 Departure - Departure Disposition: DC/Tfer to Acute Hospital 02 Clinical Impression: COPD with exacerbation, Respiratory acidosis - Discharge Information Referrals: PCP,Not In Area [Primary Care Provider] - Forms: ED Department Discharge <Sukhwinder Strauss - Last Filed: 02/28/18 14:48> Course - Re-Assessments/Exams Free Text/Narrative Re-Assessment/Exam: 02/28/18 14:15 I took over this patient from Kiran Rushing who did H/P. I reviewed the notes as well as reports from recent hospitalizations. Patient is willing to go to [facility] in [place] for treatment and pulmonology consultation. I discussed this with Kiran as well as Dr. Aura Fuentes. Hospitalist, Dr. Wrigth , accepted patient for transfer. Today in ER he has had Solumedrol 125 mg, Duoneb. He has been hospitalized three times in last two weeks and twice left AMA. Today he says he wants to be treated. Vitals have been stable but with some tachypnea and respiratory distress. He is DNR/DNI. He had been hyperkalemic during an earlier hospitalization but is normokalemic today. White count is elevated at 14.9 but this is lower than it has usually been when checked several times over last 4 months. He has been treating for pneumonia recently and later felt not to be pneumonia; however today CXR indicates a slightly worsening RLL infiltrate. Today we feel he needs pulmonology consultation and have BiPap available since ours is currently being used on another patient. 02/28/18 14:47 Patient remained stable but in moderate respiratory distress throughout ER course. Departure - Departure Time of Disposition: 14:23 Condition: Poor
[2018-02-28] MEDS ORDERED: methylPREDNISolone Sodium Succinate 125 MG/2 ML SDV IVPUSH SCH (12:15)
[2018-02-28] MEDS ORDERED: Albuterol/Ipratropium 3.0-0.5 MG/3 ML Neb Soln NEB SCH (13:00)
[2018-02-28 13:02] LABS: O2 DELIVERY DEVICE NASAL CANNULA
[2018-02-28 13:03] LABS: O2 SATURATION ARTERIAL 99 % (95-98); PCO2 ARTERIAL 62 mmHG (35-45); PO2 ARTERIAL 136 mmHG (80-105)
[2018-02-28 13:04] LABS: BASE EXCESS ARTERIAL 6 mmol/L (-2-3); BICARBONATE,ARTERIAL 32.1 mmol/L (22-26); O2 FLOW RATE 4 L/min
[2018-02-28 14:24] VITALS: BP 127/68
[2018-02-28] MEDS ORDERED: Albuterol/Ipratropium 3.0-0.5 MG/3 ML Neb Soln ONE (15:01)
== END 2018-02-28 15:05 ==
LOC: KA.ED 11:35
DX: J44.1 Chronic obstructive pulmonary disease with (acute) exacerbation (principal); E87.2 Acidosis; F17.210 Nicotine dependence, cigarettes, uncomplicated; Z88.2 Allergy status to sulfonamides; Z79.899 Other long term (current) drug therapy
CPT/HCPCS: 36415; 36600; 71045; 80048; 82803; 85025; 94640; 96374; 99285; J2930